=== PATIENT | male | born 1955 | race Caucasian/White ===

== ENCOUNTER 2025-01-10 18:49 | Inpatient (IN) | payer MEDICARE, SELFPAY ==
[2025-01-10] VITALS (25 sets, daily range): BP systolic 120–180; BP diastolic 64–99; PULSE 81–100; RESP 12–23; TEMP 37.1; O2SAT 94–99
--- NOTE | ~2025-01-10 | XR_ITS ---
XR chest 2V Ordering provider: Lalito Egan MD History: 69 years Male with . chest pain . Comparison: None. FINDINGS: MEDIASTINUM: The cardiac silhouette is not enlarged. LUNGS: No infiltrates, effusions or pneumothorax. Minimal underlying fibrotic changes in lung bases. OTHER: No free air under the diaphragm. Degenerative spine. IMPRESSION: No acute cardiopulmonary pathology. Reviewed, dictated and finalized at location A.
--- NOTE | 2025-01-10 18:55 | ECG_ITS ---
Test Date: 2025-01-10 19:00:55 Measurements Intervals [place] Rate: 84 P: 91 TX: 218 QRS: 61 QRSD: 170 T: 20 QT: 422 QTc: 501 Interpretive Statements SINUS RHYTHM WITH FIRST DEGREE AV BLOCK WITH OCCASIONAL SUPRAVENTRICULAR PREMATURE COMPLEXES RIGHT BUNDLE BRANCH BLOCK [120+ ms QRS DURATION, UPRIGHT V1, 40+ ms S IN I/aVL/V4/V5/V6] MARKED T-WAVE ABNORMALITY, CONSIDER ANTERIOR ISCHEMIA [-0.5+ mV T-WAVE IN V3/V4] ABNORMAL ECG No previous ECG available for comparison Electronically Signed On 01-11-2025 12:33:47 CDT by Norberto Beck M.D.
[2025-01-10 19:12] LABS: Hematocrit 46.4 % (42.0-52.0); Hemoglobin 15.6 g/dL (14.0-18.0); Immature Granulocyte Percent A 0.3 % (0-0.5); Lymphocytes Absolute Auto 0.76 K/mm3 (0.9-3.2); Mean Corpuscular HGB Conc 33.6 g/dl (32-36); Mean Corpuscular Hemoglobin 31.4 pg (26-34); Mean Corpuscular Volume 93.4 fl (80-100); Nucleated Red Blood Cells Absolute Auto 0.000 K/mm3 (0.0-0.012); Nucleated Red Blood Cells Perc 0.0 % (0.0-0.2); Platelet Count Result 179 k/mm3 (150-375); Red Blood Count 4.97 M/mm3 (4.6-6.20); White Blood Count 9.5 K/mm3 (4.5-10.0)
--- NOTE | 2025-01-10 19:21 | ED.CHESTPAIN ---
HPI - Chest Pain General Chief Complaint: Chest Pain Stated Complaint: CHEST TIGHTNESS, Hx OF HEART STENTS Time Seen by Provider: 01/10/25 19:10 History of Present Illness HPI narrative: Patient presents with report of substernal chest tightness that started 1-1/2 hours prior to EMS arrival. He describes it as a heartburn sensation for which he took for Rolaids without relief. It is otherwise nonradiating. He also took 2 nitroglycerin tablets at home although he had been prescribed these a very long time ago and they were noted to be . He noted no change after he took these. He does have a history of 2 stents placed approximately 10 years ago at [facility] and does follow religiously with his paper sample clerk through [facility] including most recently 4 months ago. No recent cardiac catheterizations. He believes he might of had a stress test although the timing of which is unclear. He does receive quarterly blood work given he is on leflunomide and this was done recently in his blood glucose was 109. Denies a history of heart failure but is on spironolactone as well.. Describes the tightness currently as 3/10 in severity. No nausea or vomiting, diaphoresis, fevers or chills, or cough. He is on Eliquis and denies missing any doses. Denies any lower extremity edema. He denies any thomas shortness of breath although he does state that he is very aware when he takes a breath. Cardiac risk factors HTN: Yes HLD: No but on statin as preventative/post stent med due to CAD DM: No Obese: Yes Smoker: No, quit 20 years ago Personal history IL/TIA/CVA: Hx CAD w/ stent Fam Hx IL in first degree relative <65yo: No Related Data Home Medications ?Medication ?Instructions ?Recorded ?Confirmed ?Last Taken ?Type amlodipine 10 mg tablet 10 mg PO DAILY@0400 01/11/25 01/11/25 01/10/25 04:03 History 10 mg apixaban 5 mg tablet (Eliquis) 5 mg PO BID 01/11/25 01/11/25 01/10/25 16:00 History 5 mg atorvastatin 40 mg tablet 40 mg PO .daily 1600 01/11/25 01/11/25 01/10/25 16:00 History 40 mg bupropion HCl 150 mg 24 hr tablet, 450 mg PO .daily 0400 01/11/25 07/02/25 07/01/25 04:00 History extended release 450 mg clonidine HCl 0.3 mg tablet 0.3 mg PO Q8H 01/11/25 01/11/25 01/10/25 20:00 History 0.3 mg hydralazine 100 mg tablet 100 mg PO .daily 0400 01/11/25 01/11/25 01/10/25 04:00 History 100 mg hydralazine 25 mg tablet 75 mg PO Q8H 01/11/25 01/11/25 01/10/25 20:00 History 75 mg leflunomide 10 mg tablet 10 mg PO .daily 1600 01/11/25 01/11/25 01/10/25 16:00 History 10 mg metformin 500 mg tablet,extended 500 mg PO .daily 04001/11/25 01/11/25 01/10/25 04:00 History release 24 hr 500 mg metoprolol succinate 50 mg 50 mg PO Q12H 01/11/25 01/11/25 01/10/25 16:00 History tablet,extended release 24 hr 50 mg spironolactone 50 mg tablet 50 mg PO .daily noon 01/11/25 01/11/25 01/10/25 12:00 History 50 mg tirzepatide (weight loss) 5 mg/0.5 5 mg subcut WEEKLY 01/11/25 01/11/25 01/07/25 16:00 History mL subcutaneous pen injector 5 mg (Zepbound) Allergies Allergy/AdvReac Type Severity Reaction Status Date / Time lisinopril Allergy Intermediate angioedema Verified 01/10/25 19:10 [facility] Past Medical History Medical History (Updated 01/11/25 @ 00:32 by JAMES Vaughn) Coronary artery disease Atrial fibrillation Former smoker, stopped smoking many years ago Obese On statin therapy due to risk of future cardiovascular event HTN (hypertension) On custodial leflunomide therapy Surgical History Surgical History History of coronary artery stent placement x2, [facility]; approx 2014 Social History Social History Smoking status: Former smoker Tobacco type: cigarettes Smoking end date: 01/12/20 Alcohol intake: current Drinks per week: 6 Substance use: current Substance use type: marijuana Do You Feel Safe in your Home?: Yes Lack of Transportation: No Lack of Food: Never True Current Housing: I Have Housing Concerned About Future Housing: No Difficulty Paying Gas/Electric Bills: No Difficulty Paying for Meds: No Currently Unemployed: No Education: Master's Degree or Higher Difficulty w/ Childcare or Family Care: No Spiritual care concerns: No Exam Narrative: GENERAL: Well-appearing, well-nourished, and in no acute distress. HEAD: Normocephalic, atraumatic. EYES: Non injected, non icteric ENT: Nares clear, no rhinorrhea or epistaxis. Gross auditory acuity intact. NECK: Supple. No meningismus. CHEST: Speaking in full sentences. No respiratory distress. HEART: Regular rate and rhythm. . ABDOMEN: Obese but Soft, nondistended. EXTREMITIES: Normal range of motion. 1+ bilateral lower extremity edema. SKIN: Warm, dry, no rash. NEURO: No focal deficits. Alert and oriented. Answering questions. Following commands. Normal speech without aphasia or dysarthria. PSYCH: Normal mood and affect. Course Vital Signs Vital signs: Vital Signs Temperature 98.8 F 01/10/25 19:08 Pulse Rate 81 01/10/25 19:08 Respiratory Rate 13 01/10/25 19:08 Blood Pressure 140/76 01/10/25 19:08 Pulse Oximetry 97 01/10/25 19:08 Oxygen Delivery Room Air 01/10/25 19:08 Temperature 98.2 F 01/12/25 11:58 Pulse Rate 60 01/12/25 14:00 Respiratory Rate 16 01/12/25 11:58 Blood Pressure 169/87 H 01/12/25 11:58 Pulse Oximetry 96 01/12/25 11:58 Oxygen Delivery Room Air 01/12/25 12:00 Fraction of Inspired Oxygen 21 01/11/25 19:36 MDM - Chest Pain MDM Narrative Medical decision making narrative: Exceedingly pleasant 69-year-old male with past medical history of CAD status post 2 stents presents with report of chest tightness beginning 1-1/2 hours prior to EMS arrival. He trialed for related tablets given it felt like heartburn. He also tried 2 nitroglycerin sublingual tablets but did note that they were significantly and he had never tried this medication before. He experienced no relief. In the emergency department they are afebrile with vital signs within normal limits. HEART SCORE History 2 highly suspicious 1 moderately suspicious 0 slightly suspicious History score [address] depression/elevation not due to LBBB, LVH, or digoxin [address] depression but LBBB, LVH, nonspecific repolarization changes 0 normal ECG score 1 Age 2 >/= 65 1 45-64 0 <45 Age score 2 Risk factors (HTN, hypercholesterolemia, DM, obesity with BMI >30, current smoker or cessation </=3mo), positive fam hx with parent or sibling with CVD before age 65, atherosclerotic disease (prior IL, PCI/CABG, CVA/TIA, or peripheral arterial disease) 2 >/= 3 risk factors or history of atherosclerotic dz 1 - 1-2 risk factors 0 no known risk factors Risk factor score 2 Initial Troponin 2 >3 times normal limit 1 1-3 times normal limit 0 less than or equal to normal limit Troponin score 0 Total HEART Score 5 Albuterol treatment given he had some wheezes on exam. D-dimer normal. Patient reassessed at 10:00 p.m. he states his symptoms are better although he does have a headache after receiving nitro. He thinks the cumulative effect of the nitro helped his initial symptoms; the headache is a likely side effect of medication. Patient's repeat EKG appears the same as his initial 1 did. Pre populated algorithm suggests acute IL however is the QRS complex isolated to lead 3 but that is flagging this. He is currently asymptomtic, no chest pain. Out of an abundance of precaution I did discuss with the distribution center supervisor who reviewed both EKGs and concurs. No STEMI activation. Repeat troponin normal. Spoke with [facility] at 23:26 who accepted admission. IMU bed. Differential Diagnosis Differential diagnosis: Likely pneumothorax, stable angina, unstable angina pectoris, atypical chest pain, st elevation myocardial infarction, costochondritis, chest pain, biliary colic and other (Heart failure, pulmonary embolism (though less likely given on Elliquis)) Lab Data Attestation: I reviewed the patient's lab results. Lab results narrative: CBC generally unremarkable except for mild abnormalities on the differential 01/12/25 03:39 01/12/25 03:39 Labs: Lab Results 01/10/25 01/10/25 01/10/25 Range/Units 19:07 20:14 22:21 WBC 9.5 (4.5-10.0) K/mm3 RBC 4.97 (4.6-6.20) M/mm3 Hgb 15.6 (14.0-18.0) g/dL Hct 46.4 (42.0-52.0) % MCV 93.4 (80-100) fl MCH 31.4 (26-34) pg MCHC 33.6 (32-36) g/dl RDW 12.5 (11.5-14.5) % Plt Count 179 (150-375) k/mm3 MPV 10.3 (7.4-10.4) fl Immature Gran % (Auto) 0.3 (0-0.5) % Neut % (Auto) 81.4 H (45.5-73.1) % Lymph % (Auto) 8.0 L (18.3-44.2) % [place] % (Auto) 7.8 (2.6-8.5) % Eos % (Auto) 2.0 (0-4.4) % Baso % (Auto) 0.5 (0.2-1.2) % Lymph # (Auto) 0.76 L (0.9-3.2) K/mm3 Child[place] # (Auto) 0.7 H (0.1-0.6) K/mm3 Eos # (Auto) 0.2 (0-0.3) K/mm3 Baso # (Auto) 0.1 (0.0-0.1) K/mm3 Abs Immat Gran (auto) 0.03 (0.00-0.031) K/mm3 Absolute Neuts (auto) 7.7 H (1.3-6.7) K/mm3 Absolute Nucleated RBC 0.000 (0.0-0.012) K/mm3 Nucleated RBC % 0.0 (0.0-0.2) % PT 14.3 (11.1-14.7) Seconds INR 1.1 APTT 38.6 H (22.3-36.8) Seconds D-Dimer 0.36 (<0.48) ug/mL Sodium 133 L (137-145) mmol/L Potassium 3.4 (3.4-5.0) mmol/L Chloride 95 L (98-107) mmol/L Carbon Dioxide 24 (22-30) mmol/L Anion Gap 14 H (4-12) mmol/L BUN 18 (9-20) mg/dL Creatinine 0.95 (0.7-1.3) mg/dL Estim Creat Clear Calc 88 ml/min Estimated GFR > 60 (59 - ) Glucose 97 (65-110) mg/dL Calcium 9.8 (8.4-10.2) mg/dL Magnesium 1.9 (1.6-2.3) mg/dL Total Bilirubin 0.8 (0.2-1.3) mg/dL AST 39 (17-59) U/L ALT 28 (6-50) U/L Alkaline Phosphatase 66 (38-126) U/L Troponin I < 0.012 < 0.012 (0.000-0.034) ng/mL NT-Pro-B Natriuret Pep 30 (19.9-100) pg/mL Total Protein 8.1 (6.3-8.2) g/dL Albumin 4.6 (3.5-5.1) g/dL Lipase 83 (23-300) U/L Influenza A (RT-PCR) Negative (Negative) Influenza B (RT-PCR) Negative (Negative) RSV (RT-PCR) Negative (Negative) SARS-CoV-2 RNA (RT-PCR) Negative (Negative) 01/11/25 Range/Units 01:14 WBC (4.5-10.0) K/mm3 RBC (4.6-6.20) M/mm3 Hgb (14.0-18.0) g/dL Hct (42.0-52.0) % MCV (80-100) fl MCH (26-34) pg MCHC (32-36) g/dl RDW (11.5-14.5) % Plt Count (150-375) k/mm3 MPV (7.4-10.4) fl Immature Gran % (Auto) (0-0.5) % Neut % (Auto) (45.5-73.1) % Lymph % (Auto) (18.3-44.2) % Child[place] % (Auto) (2.6-8.5) % Eos % (Auto) (0-4.4) % Baso % (Auto) (0.2-1.2) % Lymph # (Auto) (0.9-3.2) K/mm3 [place] # (Auto) (0.1-0.6) K/mm3 Eos # (Auto) (0-0.3) K/mm3 Baso # (Auto) (0.0-0.1) K/mm3 Abs Immat Gran (auto) (0.00-0.031) K/mm3 Absolute Neuts (auto) (1.3-6.7) K/mm3 Absolute Nucleated RBC (0.0-0.012) K/mm3 Nucleated RBC % (0.0-0.2) % PT (11.1-14.7) Seconds INR APTT (22.3-36.8) Seconds D-Dimer (<0.48) ug/mL Sodium (137-145) mmol/L Potassium (3.4-5.0) mmol/L Chloride (98-107) mmol/L Carbon Dioxide (22-30) mmol/L Anion Gap (4-12) mmol/L BUN (9-20) mg/dL Creatinine (0.7-1.3) mg/dL Estim Creat Clear Calc ml/min Estimated GFR (59 - ) Glucose (65-110) mg/dL Calcium (8.4-10.2) mg/dL Magnesium (1.6-2.3) mg/dL Total Bilirubin (0.2-1.3) mg/dL AST (17-59) U/L ALT (6-50) U/L Alkaline Phosphatase (38-126) U/L Troponin I < 0.012 (0.000-0.034) ng/mL NT-Pro-B Natriuret Pep (19.9-100) pg/mL Total Protein (6.3-8.2) g/dL Albumin (3.5-5.1) g/dL Lipase (23-300) U/L Influenza A (RT-PCR) (Negative) Influenza B (RT-PCR) (Negative) RSV (RT-PCR) (Negative) SARS-CoV-2 RNA (RT-PCR) (Negative) Imaging Data Radiologist's impression: IMPRESSION: No acute cardiopulmonary pathology. ECG Data EKG #1: Attestation: I personally reviewed and interpreted this ECG as follows: ECG completion date: 01/10/25 ECG completion time: 19:00 Prior ECG tracings: not available for review (No prior for comparison) Interpretation: Normal sinus rhythm at a rate of 84 beats per minute. No prolonged at 218 milliseconds consistent with a first-degree AV block. There is occasional premature complex. QRS 170. QT/QTC 422/463. RBBB given QRS greater [id number]; RSR' M-shaped pattern in V1-V3; wide, slurred S wave in lateral leads (I, aVL, V5-6). Patient has T-wave inversions in 3. T-wave inversions in V3 and V4 and what appeared to be ST depression in V5 and V6. EKG #2: Attestation: I personally reviewed and interpreted this ECG as follows: ECG completion date: 01/10/25 ECG completion time: 22:36 Interpretation: Normal sinus rhythm at a rate of 91 beats per minute. MI interval prolonged at 206 millisecond. QRS 164. QT/QTC 397/446. Patient continues to have T-wave inversions in 3 and AVF. He also has T-wave inversions in V3, possibly due to lead placement. The ST depressions in V5 and V6 are still appreciated. There is questionable appearance of QRS complex in III, an isolated finding. See above in MDM. Discharge Plan Discharge Clinical Impression: Chest pain Patient Disposition: Still a Patient Condition: Stable Time of Disposition: 23:27
[2025-01-10 19:23] LABS: Alanine Aminotransferase 28 U/L (6-50); Albumin Level 4.6 g/dL (3.5-5.1); Alkaline Phosphatase 66 U/L (38-126); Anion Gap 14 mmol/L (4-12); Aspartate Amino Transferase 39 U/L (17-59); Bilirubin,Total 0.8 mg/dL (0.2-1.3); Blood Urea Nitrogen 18 mg/dL (9-20); Calcium 9.8 mg/dL (8.4-10.2); Carbon Dioxide 24 mmol/L (22-30); Chloride 95 mmol/L (98-107); Estimated CRCL calculation 88 ml/min; Estimated Glomerular Filt Rate > 60; Glucose 97 mg/dL (65-110); Lipase 83 U/L (23-300); Potassium 3.4 mmol/L (3.4-5.0); Sodium 133 mmol/L (137-145); Total Protein 8.1 g/dL (6.3-8.2)
[2025-01-10 19:24] LABS: INR 1.1; Prothrombin Time 14.3 Seconds (11.1-14.7)
[2025-01-10 19:25] LABS: Partial Thromboplastin Time 38.6 Seconds (22.3-36.8)
[2025-01-10 19:35] LABS: Troponin I < 0.012 ng/mL (0.000-0.034)
[2025-01-10] MEDS: NITROGLYCERIN SL 0.4 MG TABLET SUBLINGUAL (19:52)
--- OUTSIDE RECORDS SUMMARY | 2025-01-10 20:13 | XMS_ITS | Referral Summary ---
Author Organization [facility] Address [address] [place] [address] Care Team Providers Care Billet Examiner Name Role Phone Abner Beck MD Unavailable [phone] Liana Salas MD Unavailable No, Physician Primary Care Provider Encounters Date Type Department Care Team Description 01/06/2025 Orders Only [facility] [address] [facility] [address] [place] [phone] Liana Salas MD 01/06/2025 Orders Only [facility] [address] [facility] 5th [place] [address] [place] [phone] Liana Salas MD Psoriatic arthritis (HCC) (Primary Dx); Encounter for long-term (current) use of high-risk medication 11/09/2024 10:00 AM CDT Office Visit [facility] [address] [facility] 5th [place] [address] [place] [phone] Liana Salas MD Psoriatic arthritis (HCC) (Primary Dx); Encounter for long-term (current) use of high-risk medication; Primary osteoarthritis involving multiple joints; Iliotibial band syndrome, unspecified laterality from Last 3 Months Allergies Active Allergy Reactions Criticality Noted Date Comments Lisinopril Swelling Medium 01/05/2013 Medications aspirin 81 mg tablet Take 1 tablet (81 mg total) by mouth daily Active LORazepam (ATIVAN) 0.5 mg tablet Take 1 tablet (0.5 mg total) by mouth as needed for anxiety 30 tablet 05/17/20 24 Active apixaban (Eliquis) 5 mg tabletIndicatio ns:Atrial fibrillation with RVR (HCC) Take 1 tablet (5 mg total) by mouth 2 (two) times a day 180 tablet 2 09/26/19 25 Active cloNIDine (CATAPRES) 0.3 mg tablet Take 1 tablet (0.3 mg total) by mouth 3 (three) times a day 270 tablet 2 09/27/19 25 Active metoprolol XL (TOPROL-XL) 50 mg extended release tablet Take 1 tablet (50 mg total) by mouth daily 90 tablet 2 09/27/19 25 Active spironolactone (ALDACTONE) 50 mg tablet Take 1 tablet (50 mg total) by mouth daily 90 tablet 2 09/27/19 25 Active amLODIPine (NORVASC) 10 mg tablet Take 1 tablet (10 mg total) by mouth daily 90 tablet 2 09/27/19 25 Active atorvastatin (LIPITOR) 40 mg tablet Take 1 tablet (40 mg total) by mouth daily 90 tablet 2 09/27/19 25 Active metFORMIN XR (GLUCOPHAGE XR) 500 mg 24 hr tabletIndicatio ns:Polyuria,Alt ered glucose metabolism Take 1 tablet (500 mg total) by mouth daily with breakfast 90 tablet 2 09/26/19 25 Active buPROPion XL (WELLBUTRIN XL) 150 mg 24 hr tablet Take 3 tablets (450 mg total) by mouth every morning 270 tablet 1 09/28/19 25 Active hydroCHLOROthia zide (HYDRODIURIL) 50 mg tablet Take 1 tablet (50 mg total) by mouth daily 90 tablet 3 10/05/19 25 2025 Active hydrALAZINE (APRESOLINE) 100 mg tabletIndicatio ns:hypertension Take 1 tablet (100 mg total) by mouth daily 90 tablet 3 10/05/19 25 2025 Active sildenafiL (VIAGRA) 100 mg tablet Take 1 tablet (100 mg total) by mouth as needed for erectile dysfunction 90 tablet 3 10/12/19 25 Active hydrALAZINE (APRESOLINE) 25 mg tablet Take 3 tablets (75 mg total) by mouth 2 (two) times a day 180 tablet 11 10/22/19 25 2025 Active leflunomide (ARAVA) 10 mg tabletIndicatio ns:Psoriatic arthritis (HCC) TAKE 1 TABLET DAILY 90 tablet 01/06/20 25 Active tirzepatide, weight loss, (Zepbound) 7.5 mg/0.5 mL pen injector Inject 0.5 mL (7.5 mg total) under the skin once a week 2 mL 01/10/20 25 Active leflunomide (ARAVA) 10 mg tabletIndicatio ns:Psoriatic arthritis (HCC) Take 1 tablet (10 mg total) by mouth daily 90 tablet 09/29/19 25 2024 Discontinued tirzepatide, weight loss, (Zepbound) 5 mg/0.5 mL pen injector Inject 0.5 mL (5 mg total) under the skin every 7 days 2 mL 11/11/19 25 2024 Discontinued(R eorder) tirzepatide, weight loss, (Zepbound) 5 mg/0.5 mL pen injector Inject 0.5 mL (5 mg total) under the skin every 7 days 2 mL 12/14/19 25 2024 Discontinued Active Problems Problem Noted Date Diagnosed Date History of IL (myocardial infarction) 06/17/2024 Atrial fibrillation with RVR 09/17/2023 Overview (09/17/2023): Images from the original note were not included. Assessment & Plan (03/30/2024 4:45 PM CDT): No obvious symptoms symptoms , stable on meds plans for Cardiology follow-up. Assessment & Plan (09/17/2023 10:20 AM GUM SCORING MACHINE OPERATOR): Newly noted afib rvr w/ exam, EKG confirmed- detailed above Remains asymptomatic, heart rate modestly stable in 120s Exam benign otherwise w/ decom sx, etiology to explain Will update CMP, TFT to rule out possible etiologies Arrange for routine TTE, possible event monitor (?), discuss anti arrhythmics [facility] - will update today to f/u w/ pt sooner for resting if warranted + apixaban 5 mg b.i.d. for VTE prophylaxis; benefits>risks, S/Es & use of therapy discussed w/ Pt; close monitoring with borderline thrombocytopenia historically Discussed possibility of + dilt or alt beta ba from toprol- comfortable deferring given asymp status & mod stable HR 120s Counseled of reportable symptoms warranting rate control, red flags warranting ED & avoidable triggers to maintain steady heart rate Update in the week or interim prn Class 2 severe obesity due t o excess calories with serious comorbidity and body mass index (BMI) of 37.0 to 37.9 in adult 03/12/2022 Assessment & Plan (03/30/2024 4:45 PM CDT): Working on diet and exercise. Given prediabetes hypertension cardiac issues he is candidate for GLP 1 medications. He will attempt to get this filled Assessment & Plan (03/12/2022 8:55 AM CDT): He is working on calorie restriction and exercise. Adenomatous polyps 01/15/2022 Overview (01/15/2022): Added automatically from request for surgery [id number] Paresthesia 02/08/2021 Assessment & Plan (02/08/2021 10:10 AM CDT): Likely mild neuropathy will check labs. No other new complaints. Hallux rigidus of both feet 12/02/2020 Altered glucose metabolism 02/03/2019 Assessment & Plan (03/30/2024 8:02 AM CDT): Checking A1c now. Assessment & Plan (09/17/2023 8:30 AM GUM SCORING MACHINE OPERATOR): Impaired Fasting Glucose is modestly stable A1c of 5.8% today compared to 5.7% 6 months prior though still well under goal range Counseled on regular aerobic exercise, including walkig, jogging, targeting 10K- 20K step equivalent daily. and Counseled on low carbohydrate diet Follow up at the next regular appointment Assessment & Plan (03/18/2023 8:16 AM CDT): Blood sugars remain in good range. NO progression towards diabetes. Previous symptoms of sweats and hyperglycemic type symptoms resolved. Assessment & Plan (11/07/2022 9:31 AM CDT): Impaired Fasting Glucose is improving w/ therapy, lifestyle FBG glucose reduced to 130s-140s from 150-160s prior A1c up to 5.8% from 5.6% Counseled on regular aerobic exercise, including walkig, jogging, targeting 10K- 20K step equivalent daily. and Counseled on low carbohydrate diet Cnt metformin 500mg every day to avoid risk of hypoglycemia 10/02 UA unrevealing for glycosuria RTC 5 months as scheduled, interim w/ FBG Assessment & Plan (10/02/2022 11:00 AM CDT): Impaired Fasting Glucose is marginally worse, suspectedly symptomatic FBG glucose higher 150-160s from 120s A1c up to 5.8% from 5.6% Counseled on regular aerobic exercise, including walkig, jogging, targeting 10K- 20K step equivalent daily. and Counseled on low carbohydrate diet While beneficial to PMHx, SGLT1 farxiga not likely covered Agreeable trial metformin 500mg every day for preDM, prevention progression and steady glucose levels Counseled of S/Es, dietary modifications Pending CMP, UA w/ reflex for glycosuria Follow up in 4 weeks Assessment & Plan (03/12/2022 8:55 AM CDT): Checking hba1c. No recent symptoms related. Assessment & Plan (02/08/2021 9:51 AM CDT): Checking hba1c. No new complications. Working on weight loss Assessment & Plan (02/09/2020 9:47 AM CDT): Checking hba1c current regimen Medicare annual wellness visit, subsequent 01/07 Assessment & Plan (03/30/2024 8:01 AM CDT): Checking labs per routine and pertaining to problems listed . HM items reviewed and updated . No new concerns. Immunizations are utd Assessment & Plan (03/18/2023 8:17 AM CDT): Checking labs per routine and pertaining to problems listed . HM items reviewed and updated . No new concerns. He is considering covid update in the fall. Flu shot now. Labs fine. Assessment & Plan (03/12/2022 8:51 AM CDT): Checking labs per routine and pertaining to problems listed . HM items reviewed and updated . No new concerns. Getting pneumovax now. Checking labs as per routine. Otherwise utd with these Assessment & Plan (02/08/2021 9:52 AM CDT): Checking labs per routine and pertaining to problems listed . HM items reviewed and updated . No new concerns. Assessment & Plan (02/09/2020 9:46 AM CDT): Checking labs per routine and pertaining to problems listed . HM items reviewed and updated . No new concerns. Assessment & Plan (02/03/2019 9:41 AM CDT): Checking labs per routine and pertaining to problems listed . HM items reviewed and updated . No new concerns. CAD (coronary artery disease) 10/20/2017 Overview (01/07/2018): Two stents in lad 09/2017 Assessment & Plan (09/17/2023 8:34 AM GUM SCORING MACHINE OPERATOR): No reported angina or decompensation concerns amongst newly noted arrhythmia Cnt secondary preventatives for maintenance Update lipids prior to upcoming card appt Followed by Cardiology Dr. Beck Assessment & Plan (03/18/2023 8:22 AM CDT): No obvious symptoms and following twice yearly with cardiology Assessment & Plan (03/12/2022 8:51 AM CDT): No recent cardiac symptoms. No complications Continue current secondary prevention Assessment & Plan (02/08/2021 9:53 AM CDT): No new cardiac symptoms. NO chest pain or other new cardiac complaints. Continue to follow with cardiology Assessment & Plan (02/09/2020 9:47 AM CDT): No new chest pain , palpitations, sob or other complaints. Hypertension 09/01/2017 Assessment & Plan (06/17/2024 8:11 AM GUM SCORING MACHINE OPERATOR): 1. Chronic, well controlled 2. Will continue amlodipine, clonidine, hydralazine, hydrochlorothiazide, and spironolactone Assessment & Plan (03/30/2024 8:02 AM CDT): Well controlled on current regimen. Assessment & Plan (09/17/2023 8:36 AM GUM SCORING MACHINE OPERATOR): Above baseline today though Hx of white coat HTN & remains normotensive, asymptomatic at home Cnt current antihypertensive regimen, increasing exercise as tolerated the will maintain closer BP monitoring given newly noted arrhythmia to update with any trending BP's RTC 6 mos Assessment & Plan (06/09/2023 1:05 PM GUM SCORING MACHINE OPERATOR): 1. Chronic, elevated in clinic but well controlled per home readings 2. Discussed how continued use of his CPAP will help his blood pressure 3. He will continue amlodipine, clonidine, hydralazine, hydrochlorothiazide, metoprolol, and spironolactone Assessment & Plan (03/18/2023 8:21 AM CDT): Blood pressure elevation here again . Encouraged home readings He has no symptoms and will continue current regimen for now. Assessment & Plan (11/07/2022 9:27 AM CDT): Borderline controlled w/ ambulatory readings Asymptomatic Optimized on most antihypertensives Comfortable continuing Ambulatory BP, discussing BP goal at or <135/85, and reportable BPs Discussed increase hydralazine is warranted Followed by cardiology Dr.Jain rollins CAD RTC as scheduled; update interim w/ BP concerns Assessment & Plan (10/02/2022 10:58 AM CDT): Borderline controlled w/ ambulatory readings, normotensive in clinic Not likely etiology of presenting sx Cnt current antihypertensives for secondary prevention, lifestyle changes as prior Followed by cardiology hx CAD Assessment & Plan (03/14/2022 8:00 AM CDT): - Chronic, Blood pressure is slightly elevated but stable - Discussed how routine use of a CPAP machine can help control BP - Continue current medications Assessment & Plan (03/12/2022 9:03 AM CDT): Blood pressure is well controlled on current regimen . No complications. Labs have been fine. Assessment & Plan (02/08/2021 9:53 AM CDT): Hypertension is improving with treatment. Associated signs and symptoms: none. Medication Side effects, no medication side effects noted Weight loss. Regular aerobic exercise. Patient Education: Reviewed risks of hypertension and principles of treatment. Blood pressure will be reassessed at the next regular appointment. Assessment & Plan (02/09/2020 9:51 AM CDT): bp is well controlled on current regimen Assessment & Plan (02/03/2019 9:43 AM CDT): Continue with current regimen . No complications. Hyperlipidemia 07/20/2014 Assessment & Plan (03/30/2024 8:03 AM CDT): NO obvious sx or side effects from the elevation in cholesterol. Taking meds without obvious side effects . No muscle aches nor weakness. Assessment & Plan (09/17/2023 8:29 AM GUM SCORING MACHINE OPERATOR): NO obvious sx or side effects from the elevation in cholesterol. Taking meds without obvious side effects . No muscle aches nor weakness. Assessment & Plan (03/18/2023 8:21 AM CDT): NO obvious sx or side effects from the elevation in cholesterol. Taking meds without obvious side effects . No muscle aches nor weakness. Assessment & Plan (03/12/2022 8:55 AM CDT): Stable on lipitor NO obvious sx or side effects from the elevation in cholesterol. Taking his meds well without side effects . No muscle aches nor weakness. Assessment & Plan (02/08/2021 9:53 AM CDT): Stable on lipitor. Labs fie Assessment & Plan (02/09/2020 9:49 AM CDT): Continue with current regimen No concerns. Assessment & Plan (02/03/2019 9:41 AM CDT): Stable on current meds. Continue for now Moderate obstructive sleep apnea 08/04/2013 Overview (05/17/2023): - HST (05/04/23): AHI was 24.3 with O2 kaylin of 86% - DME: IV & Respiratory Care Assessment & Plan (06/17/2024 8:11 AM GUM SCORING MACHINE OPERATOR): 1. Chronic, well controlled 2. However his machine is nearing the end of life 3. Will place order to get him a new machine 4. Will continue current pressure and Assessment & Plan (03/30/2024 8:03 AM CDT): Well controlled on cpap. Assessment & Plan (09/17/2023 8:29 AM GUM SCORING MACHINE OPERATOR): Asymptomatic on current CPAP settings-Cnt as prior Followed by sleep medicine Assessment & Plan (03/18/2023 8:20 AM CDT): Well treated with cpap and getting at home sleep study . Assessment & Plan (03/14/2022 8:07 AM CDT): 1. Chronic, well controlled 2. However patient is having some leak from his mask 3. After showing him different masks, decided on the dreamwisp mask, will send to his DME company 4. Will also get attached to his machine for efficacy monitoring Assessment & Plan (03/12/2022 9:03 AM CDT): Stable on cpap mask. Getting sleep consult soon Assessment & Plan (02/08/2021 9:53 AM CDT): Continue cpap. Assessment & Plan (02/09/2020 9:51 AM CDT): Using his cpap regularly Assessment & Plan (02/03/2019 9:42 AM CDT): Using this regularly and hasn't been set for sometime Assessment & Plan (01/07/2018 1:12 PM CDT): Stable on cpap. His energy and symptoms are all normal Rheumatoid arthritis 11/09/2010 Assessment & Plan (03/30/2024 8:01 AM CDT): Symptoms are well treated with current regimen. No complications, checking labs. Assessment & Plan (03/18/2023 8:18 AM CDT): Stable on the arava with rheumatology . Doing great without recent flare up. Assessment & Plan (03/12/2022 9:04 AM CDT): Tolerating meds well. No recent flareups. Following with rheum. Assessment & Plan (02/08/2021 10:06 AM CDT): Stable on current meds. Recurrent major depression in complete remission 11/11/2007 Assessment & Plan (05/17/2024 2:22 PM GUM SCORING MACHINE OPERATOR): Remains in remission on current regimen. No changes indicated today and he agrees to continue plan. Discussed his level of stability and he would prefer to keep visits with me. We reviewed need for yearly, and he understands to reach out sooner for any recurrent symptoms/questions. Assessment & Plan (03/30/2024 8:02 AM CDT): Symptoms are well controlled on buproprion. Assessment & Plan (03/18/2023 8:18 AM CDT): Symptoms well controlled on wellbutrin. Assessment & Plan (11/11/2022 1:24 PM CDT): Jas remains stable on his current regimen of Wellbutrin and only rare Ativan. No changes indicated today. I discussed implications of end of public health emergency due to COVID19. He will need an in person visit for refills of Ativan and telehealth will likely be more restrictive. Also discussed change in clinic location. Given his stability and good insight to reach out for changes in his condition, yearly visits are sufficient, but he understands need for in person visit should he need refill of Ativan. Assessment & Plan (03/12/2022 9:04 AM CDT): Doing well on current regimen. Following with psychiatrist. Assessment & Plan (01/21/2022 3:29 PM CDT): Remains in remission on current dosing Wellbutrin. No side effects that would affect continued usage. No changes indicated today. Positive encouragement provided about vocational activity/leisure activity. Yearly visits remain appropriate given stability and his good insight to reach out for any change in condition that is concerning. Assessment & Plan (01/29/2021 4:09 PM CDT): He is doing well on current regimen with only rare use of Ativan. Discussed dosing of Wellbutrin as well and he is happy with the ways things are currently. No indication for changes today and yearly follow up remains appropriate. Encouraged healthy behaviors such as his daily walks. He will make own appt through [employer] or call office for assistance. Assessment & Plan (02/09/2020 9:46 AM CDT): Doing fine and he is enjoying senior living despite pandemic Assessment & Plan (02/03/2019 9:41 AM CDT): Doing fine on current regimen . No complications Assessment & Plan (08/10/2018 3:14 PM GUM SCORING MACHINE OPERATOR): Remains stable on current regimen. Mood and anxiety symptoms are under control so no indication for changes today. He provides informed consent to continue with regimen of 450mg Wellbutrin with very rare Ativan. Discussed transition to senior living and he has a good plan. Return in 6months, sooner, prn. Assessment & Plan (02/02/2018 3:42 PM CDT): Mood symptoms are under good control on current regimen. Discussed that his psychotropic medication should not have any cardiac or GI side effects that affect his other conditions. He sees good benefit and consents to continue current regimen. No changes are indicated. He will f/u in 6months. Assessment & Plan (01/07/2018 1:13 PM CDT): Psychological condition is unchanged. Continue current treatment regimen. Psychological condition will be reassessed at the next regular appointment. Malignant neoplasm of prostate 05/26/2007 Assessment & Plan (03/30/2024 8:02 AM CDT): Checking psa now. Assessment & Plan (09/17/2023 8:31 AM GUM SCORING MACHINE OPERATOR): Remains near undetectable with annual active surveillance Will recheck in 6 mos Assessment & Plan (03/18/2023 8:19 AM CDT): Checking psa now. NO signs of recurrence Assessment & Plan (03/12/2022 9:03 AM CDT): Checking psa. No signs of recurrence. Assessment & Plan (02/08/2021 9:54 AM CDT): Stable by psa . Assessment & Plan (02/03/2019 9:43 AM CDT): No signs of recurrence and checking psa Resolved Problems Problem Noted Date Diagnosed Date Resolved Date Arrhythmia 09/17/2023 09/17/2023 Immunizations Immunization Administration Dates Next Due Influenza, Quadrivalent, Split, Intramuscular Influenza, Quadrivalent, Spl it, Preservative Free, Intramuscular 04/02/2019,05/13/2013 Influenza, Unspecified 05/07/2020 Pfizer SARS-CoV-2 Monovalent Vaccination (12+ Yrs) PURPLE 09/15/2020,08/18/2020 Pneumococcal Polysaccharide PPV23 03/12/2022 Tdap 02/03/2019 Tetanus toxoid, adsorbed 05/08/2008 ZOSTER Recombinant 05/24/2018,02/24/2018 Social History Tobacco Use Types Packs/Day Years Used Date Smoking Tobacco: Former Cigarettes 1 30 0 11/14/1974 - 10/09/2004 Smokeless Tobacco: Never Tobacco Cessation:Counseling Given: Not Answered Alcohol Use Standard Drinks/Week Comments Yes 0 (1 standard drink = 0.6 oz pur e alcohol) AUDIT-C Answer Date Recorded Q1: How often do you have a drink containing alcohol? 4 or more times a week 03/30/2024 Q2: How many drinks containi ng alcohol do you have on a typical day when you are drinking? 1 or 2 Q3: How often do you have si x or more drinks on one occasion? Never 03/30/2024 PHQ-2 Answer Date Recorded PHQ-2 Total Score (If total score is 3 or more points, staff should administer the PHQ-9) 0 03/28/2024 Sex and Gender Information Value Date Recorded Sex Assigned at Not on file Legal Sex Male 8:49 PM GUM SCORING MACHINE OPERATOR Gender Identity Male 05/06/2019 2:56 PM CDT Sexual Orientation Straight 05/06/2019 2: 56 PM CDT Last Filed Vital Signs Vital Sign Reading Time Taken Comments Blood Pressure 167/85 11/09/2024 10:01 AM CDT Pulse 67 11/09/2024 10:01 AM CDT Temperature 36.6 C (97.8 F) 11/09/2024 10:01 AM CDT Respiratory Rate 20 03/30/2024 7:47 AM CDT Oxygen Saturation 97% 10/04/2024 9:24 AM CDT Inhaled Oxygen Concentration - - Weight 126.1 kg (278 lb) 11/09/2024 10:01 AM CDT Height 185.4 cm (6' 1) 11/09/2024 10:01 AM CDT Body Mass Index 36.68 11/09/2024 10:01 AM CDT Plan of Treatment Not on file Medical Devices Implanted Type [employer] Device Identifier Shelf Expiration Date Model / Serial / Lot Other - See Comments-2018 Implanted:08/2018 (Quantity not on file) Other - see comments Coronary Procedures Procedure Name Priority Date/Time Associated Diagnosis Comments COMPREHENSIVE METABOLIC PANEL Routine 01/06/2025 7:05 AM CDT CBC WITH AUTO DIFFERENTIAL Routine 01/06/2025 7:05 AM CDT PSA SCREEN Routine 05/26/2024 7:25 AM GUM SCORING MACHINE OPERATOR Malignant neoplasm of prostate (HCC) COLONOSCOPY 01/20/2022 8:15 AM CDT US ABDOMINAL AORTIC ANEURYSM SCREENING Schedule Routine, Read Routine (OP Routine) 03/06/2021 8:43 AM CDT Screening for AAA (aortic abdominal aneurysm) HEPATITIS C ANTIBODY Routine 01/07/2018 2:20 PM CDT Routine physical examination from Last 3 Months or Most Recently Relevant to Health Maintenance Results * (ABNORMAL) CBC with auto differential (01/06/2025 7:05 AM CDT) WBC 4.6 3.8 - 10.8 Thousand/u L [facility] RBC, POC 4.70 4.20 - 5.80 Million/uL [facility] Hgb 16.2 13.2 - 17.1 g/dL [facility] Hct 46.6 38.5 - 50.0 % [facility] MCV 99.1 80.0 - 100.0 fL [facility] MCH 34.5(H) 27.0 - 33.0 pg [facility] MCHC 34.8 32.0 - 36.0 g/dL [facility] Comment: For adults, a slight decrease in the calculated MCHC value (in the range of 30 to 32 g/dL) is most likely not clinically significant; however, it should be interpreted with caution in correlation with other red cell parameters and the patient's clinical condition. Rdw 11.9 11.0 - 15.0 % [facility] Platelets 190 140 - 400 Thousand/u L [facility] MPV 11.0 7.5 - 12.5 fL [facility] Neutrophils, abs 2,769 1,500 - 7,800 cells/uL [facility] Lymphocytes, abs 984 850 - 3,900 cells/uL [facility] Monocyte abs 547 200 - 950 cells/uL [facility] Eosinophils, abs 258 15 - 500 cells/uL [facility] Basophils, abs 41 0 - 200 cells/uL [facility] Neutrophils 60.2 % [facility] Lymphocyte pct 21.4 % [facility] Monocytes 11.9 % [facility] Eosinophils 5.6 % [facility] Basophils 0.9 % [facility] 01/06/2025 7:05 AM CDT 01/06/2025 7:06 AM CDT us Liana Salas MD LAB BLOOD ORDERABLES Final Result [facility] [id number] [place] [address] * (ABNORMAL) Comprehensive metabolic panel (01/06/2025 7:05 AM CDT) Pathologist [facility] Glucose 107(H) 65 - 99 mg/dL [facility] Comment: Fasting reference interval For someone without known diabetes, a glucose value between 100 and 125 mg/dL is consistent with prediabetes and should be confirmed with a follow-up test. BUN 17 7 - 25 mg/dL [facility] Creatinine 0.81 0.70 - 1.35 mg/dL [facility] eGFR 95 > OR = 60 mL/min/1.7 3m2 [facility] BUN/creat ratio SEE NOTE: 6 - 22 (calc) [facility] Comment: Not Reported: BUN and Creatinine are within reference range. Sodium 134(L) 135 - 146 mmol/L [facility] Potassium, pl 4.3 3.5 - 5.3 mmol/L [facility] Chloride 100 98 - 110 mmol/L [facility] [place] CO2 25 20 - 32 mmol/L [facility] Calcium 9.1 8.6 - 10.3 mg/dL [facility] Protein, sr 6.4 6.1 - 8.1 g/dL [facility] Albumin 4.0 3.6 - 5.1 g/dL [facility] GLOBULIN 2.4 1.9 - 3.7 g/dL (calc) [facility] Alb/glob ratio 1.7 1.0 - 2.5 (calc) [facility] Bilirubin, total 0.6 0.2 - 1.2 mg/dL [facility] Alk phos 74 35 - 144 U/L [facility] AST 24 10 - 35 U/L [facility] ALT (SGPT) 20 9 - 46 U/L [facility] 01/06/2025 7:05 AM CDT 01/06/2025 7:06 AM CDT Liana Salas MD LAB BLOOD ORDERABLES Final Result Performing Organization Address City/[facility] [address]/ZIP Co de Phone Number [facility] [address] [place] [address] * PSA screen (05/26/2024 7:25 AM 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 The test result will be approximately 20% lower when compared to the equimolar-standardized total PSA (Brett [place]). Comparison of serial PSA results should be interpreted with this fact in mind. This test was performed using the Siemens chemiluminescent method. Values obtained from different assay methods cannot be used interchangeably. PSA levels, regardless of value, should not be interpreted as absolute evidence of the presence or absence of disease. Blood 05/26/2024 7:25 AM GUM SCORING MACHINE OPERATOR 05/26/2024 7:25 AM GUM SCORING MACHINE OPERATOR Leonel Burnham MD LAB BLOOD ORDERABLES Final R esult [facility] [place] [address] [id number] * COLONOSCOPY (01/20/2022 8:15 AM CDT) Anatomical Region Laterality Modality Other Narrative Procedure Note Audrey Mcgrath MD - 01/20/2022 8:15 AM CDT [facility] Patient Name: Jas Ramirez Procedure Date: 01/20/2022 8:15 AM Date of : 1955 Admit Type: Outpatient Age: 66 Gender: Male Attending MD: Audrey Mcgrath M.D. Room: [facility] ENDOSCOPY ROOM 9 Note Status: Finalized Procedure: Colonoscopy Indications: Surveillance: Personal history of adenomatouspolyps on last colonoscopy 3 years ago, Last colonoscopy: October 2018 Referring MD: Leonel Burnham M.D. Providers: Audrey Mcgrath M.D. Medicines: Monitored Anesthesia Care Complications: No immediate complications. Estimated Blood Loss: Estimated blood loss: none. Procedure: Pre-Anesthesia Assessment: - Immediately prior to administration ofmedications, the patient was re-assessed for adequacy to receive sedatives. - The risks and benefits of the procedure and the sedation options and risks were discussed with the patient. All questions were answered and informed consent was obtained. The benefits, risks and alternatives of theprocedure and sedation were discussed and informed consentwas obtained. All questions were answered. Please referto the signed informed consent document in the medical record. The scope was passed under direct vision.The CF [id number] endoscope was introduced through the anus and advanced to the cecum, identified by appendiceal orifice and ileocecal valve. The colonoscopy was performed without difficulty. The patient tolerated the procedure well. The qualityof the bowel preparation was evaluated using the BBPS ([place] Bowel Preparation Scale) with scores of:Right Colon = 3 (entire mucosa seen well with no residual staining, small fragments of stool or opaqueliquid), Transverse Colon = 3 (entire mucosa seen well withno residual staining, small fragments of stool oropaque liquid) and Left Colon = 2 (minor amount ofresidual staining, small fragments of stool and/or opaque liquid, but mucosa seen well). The total BBPS score equals 8. The quality of the bowel preparation was good. The bowel preparation used was polyethylene glycol (PEG) via split dose instruction. Thequality of the bowel preparation was good. Findings: Many small-mouthed diverticula were found in the sigmoid colon. Non-bleeding internal hemorrhoids were found during retroflexion. The hemorrhoids were medium-sized. The exam was otherwise without abnormality. Impression: - Diverticulosis in the sigmoid colon. - Non-bleeding internal hemorrhoids. - The examination was otherwise normal. - No specimens collected. Recommendation: - Repeat colonoscopy in 5 years for surveillance. Attending Participation: I personally performed the entire procedure. Electronically signed by Audrey Mcgrath MD Audrey Mcgrath M.D. 01/20/2022 8:56:23 AM . Number of Addenda: 0 Note Initiated On: 01/20/2022 8:15 AM Recognized by the [place] [employer] for promoting quality in endoscopy us Audrey Mcgrath MD ENDOSCOPY PROCEDURES Final Res ult * US Abdominal Aortic Aneurysm Screening (03/06/2021 8:43 AM CDT) Anatomical Region Laterality Modality Abdomen Ultrasound 03/06/2021 8:47 AM CDT Impressions 03/06/2021 9:01 AM CDT No abdominal aortic aneurysm. Dictated by: Johanna Howell M.D. The radiology attending physician has personally reviewed this study, and had reviewed and/or edited this written report and agrees with it. Electronically signed by: Mark Woodard M.D. Narrative 03/06/2021 9:01 AM CDT EXAMINATION: AORTA SONOGRAM HISTORY: 65-year-old male undergoing abdominal aortic aneurysm screening COMPARISON: CT 01/11/2018 FINDINGS: Aorta: The proximal abdominal aorta is difficult to visualize due to body habitus. There is no abdominal aortic aneurysm. The infrarenal aorta measures 2.2 cm in its greatest AP dimension and 2.2 cm in its greatest transverse dimension. Iliac arteries: The left proximal common iliac artery measures 1.5 cm and the right 1.5 cm. Procedure Note Mark Woodard MD - 03/06/2021 EXAMINATION: AORTA SONOGRAM HISTORY: 65-year-old male undergoing abdominal aortic aneurysm screening COMPARISON: CT 01/11/2018 FINDINGS: Aorta: The proximal abdominal aorta is difficult to visualize due to body habitus. There is no abdominal aortic aneurysm. The infrarenal aorta measures 2.2 cm in its greatest AP dimension and 2.2 cm in its greatest transverse dimension. Iliac arteries: The left proximal common iliac artery measures 1.5 cm and the right 1.5 cm. IMPRESSION: No abdominal aortic aneurysm. Dictated by: Johanna Howell M.D. The radiology attending physician has personally reviewed this study, and had reviewed and/or edited this written report and agrees with it. Electronically signed by: Mark Woodard M.D. Leonel Burnham MD [facility] US PROCEDURES Final Resu lt * Hepatitis C antibody (01/07/2018 2:20 PM CDT) Hep C Ab Nonreactive Nonreactive [facility] Comment: Interpretive Data Positive and greyzone results should be confirmed by a molecular method. If positive or greyzone, a second separately collected sample should be submitted for Hepatitis C Virus RNA. Detection and Quantitation by Real-Time Reverse Software Clerk-PCR.Current Interpretive data was last revised on 2016. Blood specimen (specimen) 01/07/2018 2:20 PM CDT 01/07/2018 3:02 PM CDT Narrative [facility] - 01/08/2018 9:26 AM CDT us Leonel Burnham MD LAB MICROBIOLOGY - GENERAL O RDERABLES Edited Result - Final [facility] Department [place] [address] from Last 3 Months or Most Recently Relevant to Health Maintenance Insurance MEDIC[facility] MEDICARE [facility] MEDICARE [facility] MEDICARE [facility] Advance Directives For more information, please contact: [phone] * Full Code (Latest Code Status on File) Date Activated Date Inactivated Comments 01/20/2022 8:08 AM 01/20/2022 1:43 PM * Full Code Date Activated Date Inactivated Comments 10/27/2018 10:53 AM 10/27/2018 4:33 PM Care Teams Billet Examiner Relationship Specialty Start Date End Date No, Physician PCP - General 10/04/24 Abner Beck MD [address] [facility] [address] [place] [address] Consulting Physician Cardiology 03/04/18 Liana Salas MD [address] [facility] [address] [place] [address] Referring Physician Rheumatology 02/03/19
--- OUTSIDE RECORDS SUMMARY | 2025-01-10 20:13 | XMS_ITS | Clinical Summary ---
Author Organization [facility] Address [address] [place] [address] Care Team Providers Care Golf Cart Repairer Name Role Phone Lito Hinojosa MD Primary Care Provider [phone] Source Comments [facility],non-owned Affiliates and Associated Physician Practices is amultiple site organization consisting of ambulatory clinics and hospital sitesin [place], [place], [place] and [place]. This disclosure is being madepursuant to the Care Everywhere program and may not contain all information available regarding this patient. 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 Gender Identity Not on file Sexual Orientation Not on file Plan of Treatment Health Maintenance Due Date Last Done Comments COLOGUARD (AGES 45-75) - COL ON CA SCREENING 1955 COLON MONITORING 1955 COLONOSCOPY - COLON CA SCREENING 1955 CT COLONOGRAPHY - COLON CA SCREENING 1955 Colorectal Cancer Screening 1955 FIT - COLON CA SCREENING 1955 FLEX SIG - COLON CA SCREENING 1955 LIPID TESTING 1955 HEPATITIS C SCREENING 08/02/1973 DTAP/TDAP/TD VACCINES (1 - Tdap) 1974 PNEUMOCOCCAL VACCINE 50+ (1 of 1 - PCV) 2005 ZOSTER VACCINE (1 of 2) 2005 COVID-19 VACCINE ( - 2023-2 5 season) 2024 DEPRESSION SCREENING 07/13/2024 INFLUENZA VACCINE (Season Ended) 2025 Respiratory Syncytial Virus (RSV) Vaccine Pt: or over 60 yrs (1 - 1-dose 75+ series) 2030 HEPATITIS B VACCINE Aged Out No longe r eligible based on patient's age to complete this topic HIB VACCINE Aged Out No longer eligi ble based on patient's age to complete this topic HPV VACCINE Aged Out No longer eligi ble based on patient's age to complete this topic MENINGOCOCCAL (Group B) VACC INE SHARED DECISION-MAKING Aged Out No longer eligibl e based on patient's age to complete this topic MENINGOCOCCAL GROUPS A/C/Y/W VACCINE Aged Out No longer eligible b ased on patient's age to complete this topic Care Teams Golf Cart Repairer Relationship Specialty Start Date End Date Lito Hinojosa MD PCP - General 01/14/13
--- OUTSIDE RECORDS SUMMARY | 2025-01-10 20:13 | XMS_ITS | Continuity of Care Document ---
Author Organization [facility] Address [address] [place] [address] Phone Care Team Providers Care Cotton Picker Name Role Phone Refugio PT,MPT,ATC, Jakob Unavailable Unavai lable Procedures Procedure Date Therapeutic Activities Neuromuscular Re-Ed Therapeutic Activities Neuromuscular Re-Ed Doc neg elder mal no plan PT Evaluation Moderate Complexity Therapeutic Activities Neuromuscular Re-Ed Advance Directives Directive Yes / No Effective Date File Name No Information Encounters Encounter Description Practice Location Reason(s) For Visit Diagnoses Date Provider Providers Copied on Encounter [facility] [facility] [address] [facility] [place], [place], [id number], tel:[phone] [place] No Information 3 Refugio aGlvez , [place], [place]. [facility], [place], [place], [id number], tel:[phone] [place] No Information 3 Refugio [place], [place]. Referring Provider: Delano Villasenor [facility] [place], [address]. tel:[phone] [facility], [address], [place], [place], [id number], tel:[phone] [place] No Information 3 Refugio [place], [place]. Referring Provider: Delano Villasenor, [address] [place], [address]. tel:[phone] [facility], [address], [place], [place], [id number], [place] tel:[phone] [place] No Information 3 Refugio Galvez [place], [place], [place]. Referring Provider: Delano Villasenor, [address] [place], [address]. tel:[phone] Family History Family Member Type Diagnosis Age At Onset No Information Payers Payer name Insurance type Covered democrat ID Authoriza titosin(s) Medicare [place] [id number] [facility] [id number] [address] [id number] Social History Type Description Quantity Date Captured Comments Sex Male Smoking Status No Information Chief Complaint And Reason For Visit No Information Reason For Referral Reason For Referral No Information History Of Present Illness Encounter Date Complaint History Of Prese nt Illness No Information Functional Status Date Functional Assessmen t No Information Instructions Date Instruction Additional Infor nikki Giving encouragement to exercise Related to Overweight Giving encouragement to exercise Related to Overweight Assessments Type Assessment Date No Information Patient Care Teams Name Effective Dates (start - stop) Status Members No Information
--- OUTSIDE RECORDS SUMMARY | 2025-01-10 20:13 | XMS_ITS | Encounter Summary ---
Author Organization [facility] Address [address] [place] [phone] Phone Care Team Providers Care Case Finisher Name Role Phone Leonel Burnham MD Primary Care Provider [phone] Abner Beck MD Unavailable [phone] Liana Salas MD Unavailable [phone] No, Physician Primary Care Provider [phone] Encounter Details Date Type Department Care Team (Late st Contact Info) Description 03/12/[address] [address] [place] [address] [facility] [address] [place] [address] Social History Tobacco Use Types Packs/Day Years Used Date Smoking Tobacco: Former Cigarettes 1 30 0 11/14/1974 - 10/09/2004 Smokeless Tobacco: Never Alcohol Use Standard Drinks/Week Comments Yes 0 (1 standard drink = 0.6 oz pur e alcohol) 15/week AUDIT-C Answer Date Recorded Q1: How often do you have a drink containing alcohol? 4 or more times a week 01/20/2022 Q2: How many drinks containi ng alcohol do you have on a typical day when you are drinking? 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 Answer Date of Assessment Author 4 or more times a week 03/12/2023 1:42 PM CDT My chart, Generic Provider * Q2: How many drinks containing alcohol do you have on a typical day when you are drinking? Answer Date of Assessment Author 1 or 2 03/12/2023 1:42 PM CDT Maxwell, Generic Provider * Q3: How often do you have six or more drinks on one occasion? Answer Date of Assessment Author Never 03/12/2023 1:42 PM CDT Maxwell, Generic Provider documented as of this encounter Plan of Treatment Not on file documented as of this encounter Visit Diagnoses Not on filedocumented in this encounter Care Teams Case Finisher Relationship Specialty Start Date End Date Leonel Burnham MD PCP - General 08/27/16 09/09/24 No, Physician PCP - General 10/04/24 Abner Beck MD [address] [place] [address] Consulting Physician Cardiology 03/04/18 Liana Salas MD [address] [place] [address] Referring Physician Rheumatology 02/03/19 documented as of this encounter
--- OUTSIDE RECORDS SUMMARY | 2025-01-10 20:13 | XMS_ITS | Clinical Summary ---
Author Organization [facility] Address [address] [place] [address] Care Team Providers Care Laboratory Animal Care Veterinarian Name Role Phone Abner Beck MD Unavailable [phone] Liana Salas MD Unavailable [phone] No, Physician Primary Care Provider [phone] Allergies Active Allergy Reactions Criticality Noted Date [...] Problem Noted Date Diagnosed Date History of GA (myocardial infarction) 06/17/2024 Atrial fibrillation with RVR 09/17/2023 Overview (09/17/2023): Images from the original note were not included. Assessment & Plan (03/30/2024 4:45 PM CDT): No obvious symptoms symptoms , stable on meds plans for Cardiology follow-up. Assessment & Plan (09/17/2023 10:20 AM DIGITAL ANALYTICS MANAGER): Newly noted afib rvr w/ exam, EKG confirmed- detailed above Remains asymptomatic, heart rate modestly stable in 120s Exam benign otherwise w/ decom sx, etiology to explain Will update CMP, TFT to rule out possible etiologies Arrange for routine TTE, possible event monitor (?), discuss anti arrhythmics or conversion procedures for this at behest of pot builder - will update today to f/u w/ [...] (01/15/2022): Added automatically from request for surgery [id number] Paresthesia 02/08/2021 Assessment & Plan (02/08/2021 10:10 AM CDT): Likely mild neuropathy will check labs. No other new complaints. Hallux rigidus of both feet 12/02/2020 Altered glucose metabolism 02/03/2019 Assessment & Plan (03/30/2024 8:02 AM CDT): Checking A1c now. Assessment & Plan (09/17/2023 8:30 AM DIGITAL ANALYTICS MANAGER): Impaired Fasting Glucose is modestly stable A1c [...] 09/2017 Assessment & Plan (09/17/2023 8:34 AM DIGITAL ANALYTICS MANAGER): No reported angina or decompensation concerns amongst [...] 09/01/2017 Assessment & Plan (06/17/2024 8:11 AM DIGITAL ANALYTICS MANAGER): 1. Chronic, well controlled 2. Will continue amlodipine, clonidine, hydralazine, hydrochlorothiazide, and spironolactone Assessment & Plan (03/30/2024 8:02 AM CDT): Well controlled on current regimen. Assessment & Plan (09/17/2023 8:36 AM DIGITAL ANALYTICS MANAGER): Above baseline today though Hx of white coat HTN & remains normotensive, asymptomatic at home Cnt current antihypertensive regimen, increasing exercise as tolerated the will maintain closer BP monitoring given newly noted arrhythmia to update with any trending BP's RTC 6 mos Assessment & Plan (06/09/2023 1:05 PM DIGITAL ANALYTICS MANAGER): 1. Chronic, elevated in clinic but well [...] increase hydralazine is warranted Followed by cardiology hx CAD RTC as scheduled; update interim w/ [...] weakness. Assessment & Plan (09/17/2023 8:29 AM DIGITAL ANALYTICS MANAGER): NO obvious sx or side effects from [...] Care Assessment & Plan (06/17/2024 8:11 AM DIGITAL ANALYTICS MANAGER): 1. Chronic, well controlled 2. However his machine is nearing the end of life 3. Will place order to get him a new machine 4. Will continue current pressure and Assessment & Plan (03/30/2024 8:03 AM CDT): Well controlled on cpap. Assessment & Plan (09/17/2023 8:29 AM DIGITAL ANALYTICS MANAGER): Asymptomatic on current CPAP settings-Cnt as prior Followed by sleep medicine Assessment & Plan (03/18/2023 8:20 AM CDT): Well treated with cpap and getting at home sleep study . Assessment & Plan (03/14/2022 8:07 AM CDT): 1. Chronic, well controlled 2. However patient is having some leak from his mask 3. After showing him different masks, decided on the 9Lenses mask, will send to his [employer] company 4. Will also get attached to [...] 11/11/2007 Assessment & Plan (05/17/2024 2:22 PM DIGITAL ANALYTICS MANAGER): Remains in remission on current regimen. No [...] walks. He will make own appt through [facility] or call office for assistance. Assessment & Plan (02/09/2020 9:46 AM CDT): Doing fine and he is enjoying fci despite pandemic Assessment & Plan (02/03/2019 9:41 AM CDT): Doing fine on current regimen . No complications Assessment & Plan (08/10/2018 3:14 PM DIGITAL ANALYTICS MANAGER): Remains stable on current regimen. Mood and anxiety symptoms are under control so no indication for changes today. He provides informed consent to continue with regimen of 450mg Wellbutrin with very rare Ativan. Discussed transition to [facility] and he has a good plan. Return [...] now. Assessment & Plan (09/17/2023 8:31 AM DIGITAL ANALYTICS MANAGER): Remains near undetectable with annual active surveillance [...] Diagnosed Date Resolved Date Arrhythmia 09/17/2023 09/17/2023 Encounters Date Type Department Care Team Description 01/06/[address] [facility] Rheumatology [address] [place] [address] Liana Salas MD 01/06/[address] [facility] Rheumatology [address] [place] [address] 5[address] [place] [address] [place] [address] Liana Salas MD Psoriatic arthritis (HCC) (Primary Dx); Encounter for long-term (current) use of high-risk medication 11/09/2024 10:00 AM CDT Office Visit [facility] Rheumatology [address] [place] [address] 5[address] [place] [address] [place] [address] Liana Salas MD Psoriatic arthritis (HCC) (Primary Dx); Encounter for long-term (current) use of high-risk medication; Primary osteoarthritis involving multiple joints; Iliotibial band syndrome, unspecified laterality from Last 3 Months Immunizations Immunization Administration Dates Next Due Influenza, Quadrivalent, Split, Intramuscular Influenza, Quadrivalent, Spl it, Preservative Free, Intramuscular 04/02/2019,05/13/2013 Influenza, Unspecified 05/07/2020 Pfizer SARS-CoV-2 Monovalent Vaccination (12+ Yrs) PURPLE 09/15/2020,08/18/2020 Pneumococcal Polysaccharide PPV23 03/12/2022 Tdap 02/03/2019 Tetanus toxoid, adsorbed 05/08/2008 ZOSTER Recombinant 05/24/2018,02/24/2018 Surgical History Surgery Date Site/Laterality Comments ELBOW SURGERY Left Elbow Surgery - (Added by TW Conv) WRIST SURGERY Left Wrist Surgery - (Added by TW Conv) CT PROSTECT RETROPUB RAD W/W O NRV SPAR & BI PLV LYM Prostatect Retropubic Radical W/ Bilat Pelv Lymphadenectomy - 09/2004 (Added by TW Conv) CT COLONOSCOPY FLX DX W/MARIAN J SPEC WHEN PFRMD Complete Colonoscopy - (Added by TW Conv) CARDIAC STENT PLACEMENT x2 PROSTATE SURGERY 2004 Medical History Medical History Date Comments Personal history of arthritis Ar thritis - (Added by TW Conv) Major depressive disorder, r ecurrent, moderate (HCC) Moderate recurrent major dep ression - (Added by TW Conv) Personal history of other di seases of the digestive system History of diverticulitis of colon - (Added by TW Conv) Other general symptoms and signs Exercise intolerance - (Added by TW Conv) Personal history of other di seases of the circulatory system History of hypertension - (A dded by TW Conv) Pain in shoulder Shoulder joint pain - (Added by TW Conv) Hypertension Colon polyp Small bowel obstruction (HCC) CAD (coronary artery disease) Arthritis 2009? Cancer (HCC) 2004 Heart disease 2009? Sleep apnea 2009? Family History Medical History Relation Name Comments Dementia Father Larry. Hypertension Father Larry. Dementia Mother Amber Hypertension Mother Amber Rheum arthritis Mother Amber Family histo ry of rheumatoid arthritis - (Added by TW Conv)/Family history of rheumatoid arthritis - (Added by TW Conv) Relation Name Status Comments Brother Alive Father Larry. Mother Amber Social History Tobacco Use Types Packs/Day Years [...] on file Legal Sex Male 8:49 PM DIGITAL ANALYTICS MANAGER Gender Identity Male 05/06/2019 2:56 PM CDT Sexual Orientation Straight 05/06/2019 2: 56 PM CDT Obstetrics History Last Filed Vital Signs Vital Sign Reading [...] 11/09/2024 10:01 AM CDT Plan of Treatment Health Maintenance Due Date Last Done Comments Hepatitis B Screening 1973 Influenza Vaccine (#1) 2025 , 04/20/2021, 05/07/2020, Additional history exists Covid-19 Vaccine ( season) 2025 03/04/2021, 09/15/2020, 08/18/2020 Postponed from 03/13/2024 (Patient declined, but will receive in the future) Depression Screening 03/30/2025 03/30/2024, 03/18/2023, 03/12/2022, Additional history exists Fall Risk Assessment 03/30/2025 03/30/2024, 03/18/2023, 03/12/2022, Additional history exists Well Visit 65+ 03/30/2025 03/30/2024, 12/2022, 03/12/2022, Additional history exists Prostate Cancer Screening-PSA 05/26/2026 05/26/2024, 03/18/2023, 10/02/2022, Additional history exists Colon Cancer Screening-Colonoscopy 01/20/2027 01/20/2022, 10/27/2018, 06/09/2013 DTaP/Tdap/Td Vaccine (2 - Td or Tdap) 02/03/2029 02/03/2019, 05/08/2008 Hepatitis C Screening Completed 01/07/2018 Zoster Vaccine Completed 05/24/2018, 02/24/2018 Abdominal Aortic Aneurysm (AAA) Screen Completed 03/06/2021 Colon Cancer Screening-CT Colonography Discontinued 01/20/2022, 10/27/2018, 06/09/2013 Colon Cancer Screening-DNA Stool Discontinued 01/20/2022, 10/27/2018, 06/09/2013 Colon Cancer Screening-FIT Discontinued 01/20, 10/27/2018, 06/09/2013 Colon Cancer Screening-Sigmoidoscopy Discontinued 01/20/2022, 10/27/2018, 06/09/2013 Pneumococcal vaccine 65+ Completed 03/12/2022, 01/12 Medical Devices Implanted Type Area Gym Attendant Device Identifier Shelf Expiration Date Model / Serial / Lot Other - See Comments-2018 Implanted:08/2018 (Quantity not on file) Other - see comments Coronary Procedures Procedure Name Priority Date/Time Associated Diagnosis Comments COMPREHENSIVE METABOLIC PANEL Routine 01/06/2025 7:05 AM CDT CBC WITH AUTO DIFFERENTIAL Routine 01/06/2025 7:05 AM CDT PSA SCREEN Routine 05/26/2024 7:25 AM DIGITAL ANALYTICS MANAGER Malignant neoplasm of prostate (HCC) COLONOSCOPY 01/20/2022 8:15 AM CDT ABDOMINAL AORTIC ANEURYSM SCREENING Schedule Routine, Read Routine (OP Routine) 03/06/2021 8:43 AM CDT Screening for AAA (aortic abdominal aneurysm) HEPATITIS C ANTIBODY Routine 01/07/2018 2:20 PM CDT Routine physical examination from Last 3 Months or Most Recently Relevant to Health Maintenance Results * (ABNORMAL) CBC with auto differential (01/06/2025 7:05 AM CDT) Pathologist [facility] WBC 4.6 3.8 - 10.8 Thousand/u L [...] [place] MPV 11.0 7.5 - 12.5 fL [facility] [place] Neutrophils, abs 2,769 1,500 - 7,800 cells/uL [facility] [place] Lymphocytes, abs 984 850 - 3,900 cells/uL [facility] [place] Monocyte abs 547 200 - 950 cells/uL [facility] [place] Eosinophils, abs 258 15 - 500 cells/uL [facility] [place] Basophils, abs 41 0 - 200 cells/uL [facility] [place] Neutrophils 60.2 % [facility] [place] Lymphocyte pct 21.4 % [facility] [place] Monocytes 11.9 % [facility] [place] Eosinophils 5.6 % [facility] [place] Basophils 0.9 % [facility] [place] 01/06/2025 7:05 AM CDT 01/06/2025 7:06 AM CDT us Liana Salas MD LAB BLOOD ORDERABLES Final Result [facility]US[facility] [address] [place] [address] * (ABNORMAL) Comprehensive metabolic panel (01/06/2025 7:05 AM CDT) Glucose 107(H) 65 - 99 mg/dL [facility] Comment: Fasting reference interval For someone without known diabetes, a glucose value between 100 and 125 mg/dL is consistent with prediabetes and should be confirmed with a follow-up test. BUN 17 7 - 25 mg/dL [employer] [facility] Creatinine 0.81 0.70 - 1.35 mg/dL [employer] [facility] eGFR 95 > OR = 60 mL/min/1.7 3m2 [employer] [facility] BUN/creat ratio SEE NOTE: 6 - 22 (calc) [employer] Comment: Not Reported: BUN and Creatinine are within reference range. Sodium 134(L) 135 - 146 mmol/L [employer] [facility] Potassium, pl 4.3 3.5 - 5.3 mmol/L [employer] [facility] Chloride 100 98 - 110 mmol/L [employer] [facility] CO2 25 20 - 32 mmol/L [employer] [facility] Calcium 9.1 8.6 - 10.3 mg/dL [facility] Protein, sr 6.4 6.1 - 8.1 g/dL [facility] [place] Albumin 4.0 3.6 - 5.1 g/dL [employer] [facility] [place] GLOBULIN 2.4 1.9 - 3.7 g/dL (calc) [employer] [place] Alb/glob ratio 1.7 1.0 - 2.5 (calc) [employer] [facility] Bilirubin, total 0.6 0.2 - 1.2 mg/dL [employer] [facility] Alk phos 74 35 - 144 U/L [employer] [facility] [place] AST 24 10 - 35 U/L [employer] [facility] ALT (SGPT) 20 9 - 46 U/L [employer] [facility] [place] 01/06/2025 7:05 AM CDT 01/06/2025 7:06 AM CDT us Liana Salas MD LAB BLOOD ORDERABLES Final Result Performing Organization Address City/[facility]/ZIP Co de Phone Number [facility] [address] [place] [address] * PSA screen (05/26/2024 7:25 AM DIGITAL ANALYTICS MANAGER) PSA <0.04 < OR = 4.00 ng/mL [facility] Comment: The total PSA value from this assay system is standardized against the WHO standard. The test result will be approximately 20% lower when compared to the equimolar-standardized total PSA (Brett Caspar). Comparison of serial PSA results should be interpreted with this fact in mind. This test was performed using the Siemens chemiluminescent method. Values obtained from different assay methods cannot be used interchangeably. PSA levels, regardless of value, should not be interpreted as absolute evidence of the presence or absence of disease. Blood 05/26/2024 7:25 AM DIGITAL ANALYTICS MANAGER 05/26/2024 7:25 AM DIGITAL ANALYTICS MANAGER us Leonel Burnham MD LAB BLOOD ORDERABLES Final R esult Performing Organization Address City/[facility]/ZIP Co de Phone Number [facility] [address] [place] [address] * COLONOSCOPY (01/20/2022 8:15 AM CDT) Anatomical Region Laterality Modality Other Narrative Procedure Note Early, Audrey Swann MD - 01/20/2022 8:15 AM CDT [facility] Patient Name: Jas Ramirez Procedure Date: 01/20/2022 8:15 AM Date of : 1955 Admit Type: Outpatient Age: 66 Gender: Male Attending MD: Audrey Mcgrath M.D. Room: [facility] ENDOSCOPY ROOM 9 Note Status: Finalized [...] The scope was passed under direct vision.The [id number] endoscope was introduced through the anus and advanced to the cecum, identified by appendiceal orifice and ileocecal valve. The colonoscopy was performed without difficulty. The patient tolerated the procedure well. The qualityof the bowel preparation was evaluated using the BBPS ([place] Bowel Preparation Scale) with scores of:Right Colon [...] On: 01/20/2022 8:15 AM Recognized by the [place] [employer] for promoting quality [...] by: Mark Woodard M.D. Leonel Burnham MD IMG US PROCEDURES Final Resu lt * Hepatitis C antibody (01/07/2018 2:20 PM CDT) Hep C Ab Nonreactive Nonreactive [facility] Comment: Interpretive Data Positive and greyzone results should be confirmed by a molecular method. If positive or greyzone, a second separately collected sample should be submitted for Hepatitis C Virus RNA. Detection and Quantitation by Real-Time Reverse Waterproofing Machine Operator-PCR.Current Interpretive data was last revised on 2016. Blood specimen (specimen) 01/07/2018 2:20 PM CDT 01/07/2018 3:02 PM CDT Narrative [facility] - 01/08/2018 9:26 AM CDT Leonel Burnham MD LAB MICROBIOLOGY - GENERAL O RDERABLES Edited Result - Final [facility] Department [place] [address] from Last 3 Months or Most Recently Relevant to Health Maintenance Insurance MEDICARE [facility] MEDICARE [facility] MEDICARE [facility] Address: [address] [place] [id number] [facility] [place] [address] Advance Directives For more information, please contact: [phone] * Full Code (Latest Code Status on File) Date Activated Date Inactivated Comments 01/20/2022 8:08 AM 01/20/2022 1:43 PM * Full Code Date Activated Date Inactivated Comments 10/27/2018 10:53 AM 10/27/2018 4:33 PM Care Teams Laboratory Animal Care Veterinarian Relationship Specialty Start Date End Date No, Physician PCP - General 10/04/24 Abner Beck MD [address] [place] [address] Consulting Physician Cardiology 03/04/18 Liana Salas MD [address] [place] [address] Referring Physician Rheumatology 02/03/19
[2025-01-10 20:26] LABS: Magnesium 1.9 mg/dL (1.6-2.3)
[2025-01-10 20:36] LABS: NT Pro B Type Natriuretic Pept 30 pg/mL (19.9-100)
--- NOTE | 2025-01-10 20:43 | PC.NURSE ---
pt ambulatory with steady gait to bathroom.
[2025-01-10 21:01] LABS: Influenza A QL RT-PCR Negative (Negative); Influenza B QL RT-PCR Negative (Negative); RSV RNA, RT-PCR Negative (Negative); SARS-CoV-2 RNA PCR Negative (Negative)
--- NOTE | 2025-01-10 22:07 | ECG_ITS ---
Test Date: 2025-01-10 22:36:59 Measurements Intervals [place] Rate: 91 P: -6 CO: 198 QRS: 56 QRSD: 164 T: 24 QT: 401 QTc: 495 Interpretive Statements SINUS RHYTHM WITH FIRST-DEGREE AV BLOCK RIGHT BUNDLE BRANCH BLOCK [120+ ms QRS DURATION, UPRIGHT V1, 40+ ms S IN I/aVL/V4/V5/V6] ST SEGMENT AND T-WAVE ABNORMALITY CONSIDER ANTERIOR ISCHEMIA ABNORMAL ECG Compared to ECG 01/10/2025 19:00:55 NO SIGNIFICANT CHANGE Electronically Signed On 01-11-2025 12:45:12 CDT by Norberto Beck M.D.
[2025-01-10] MEDS: ALBUTEROL SULFATE NEB 2.5 MG/3 ML INH INHALATION (22:09)
[2025-01-10 22:58] LABS: Troponin I < 0.012 ng/mL (0.000-0.034)
--- NOTE | 2025-01-10 23:28 | PC.NURSE ---
ok to take home medications per edp neema
[2025-01-11] VITALS (25 sets, daily range): BP systolic 128–149; BP diastolic 68–80; PULSE 71–147; RESP 8–20; TEMP 36.5–36.9; O2SAT 92–100; BMI 34.8
--- NOTE | 2025-01-11 00:02 | P.HP_ITS ---
H&P: HPI History of Present Illness Date/Time: 01/11/25 00:02 Chief Complaint: Chest Pain Narrative: This is a very pleasant 69-year-old male patient with past medical history of hypertension, inflammatory arthritis on leflunomide, hyperlipidemia, diabetes mellitus, coronary artery disease status post NH and stent placement x2, TIA, CVA, atrial fibrillation on chronic Eliquis who comes to the emergency room to day with a 1-1/2 hour prior to arrival onset of mid and substernal chest tightness that did not respond to antacids that he took at home nor 2 2 nitro that he took at home. He does note his nitroglycerin may have been . Patient denies any associated symptoms of nausea/vomiting/dyspnea and he denies any recent illnesses. Patient states it has been 10 years since he had 2 stents placed at [facility] and follows with insurance claims adjuster Dr. Abner Beck. Patient is a nonsmoker having quit 20 years ago and is a nonuser of drugs or alcohol. Patient does have a first-degree family history of heart disease. Prior to arrival to the emergency room he had not been able to identify anything that exacerbated or alleviated his symptoms. In the emergency room a workup was performed that showed normal and stable vital signs, unremarkable metabolic panel and CBC, normal D-dimer, normal magnesium at 1.9, normal troponin x2 and normal coagulation studies. Initial EKG performed showed normal sinus rhythm 84 beats per minute with a first-degree AV block and occasional PVCs with a right bundle-branch block along with T-wave inversions in leads 3, V3, V4 and ST depression in leads V5 and V6. We do not have any EKGs in our system for comparison as patient has not received any cardiovascular care at our facility and a 2nd EKG was performed that again showed normal sinus rhythm 91 beats per minute be with the same ST and T-wave abnormalities at this time was reading as an acute NH. ER physician consulted Dr. Grier, who did not appreciate any acute STEMI. They felt as though there was some ectopy that was causing the machine to misread the test. He did not believe patient needed immediate intervention but rather observation in the current setting of abnormal EKG and presenting with chest pain in due to having a heart score of 5 which makes patient a moderate risk to have JAILENE. Patient was administered nitropaste in our emergency room and is currently pain-free. Review of Systems Review of Systems: All systems reviewed & are unremarkable except as noted in HPI and below [facility] Past Medical History Medical History (Updated 01/11/25 @ 00:32 by JAMES Vaughn) Coronary artery disease Atrial fibrillation Former smoker, stopped smoking many years ago Obese On statin therapy due to risk of future cardiovascular event HTN (hypertension) On [facility] leflunomide therapy Surgical History Surgical History History of coronary artery stent placement x2, [facility]; approx 2014 Social History Social History Smoking status: Former smoker Smoking end date: 07/13/04 Meds Home Medications and Allergies Allergies Allergy/AdvReac Type Severity Reaction Status Date / Time lisinopril Allergy Intermediate angioedema Verified 01/10/25 19:10 Vital Signs Vital Signs - 24 hr 01/10/25 19:08 01/10/25 19:08 01/10/25 19:12 Temperature 98.8 F Pulse Rate 81 83 Respiratory Rate 13 21 H Blood Pressure 140/76 135/64 Pulse Oximetry 97 97 Oxygen Delivery Room Air 01/10/25 19:22 01/10/25 19:35 01/10/25 19:43 Temperature Pulse Rate 86 Respiratory Rate 16 Blood Pressure Pulse Oximetry 96 98 97 Oxygen Delivery Room Air 01/10/25 19:45 01/10/25 20:02 01/10/25 20:03 Temperature Pulse Rate 81 94 94 Respiratory Rate 13 16 19 Blood Pressure 120/87 Pulse Oximetry 96 95 95 Oxygen Delivery 01/10/25 20:12 01/10/25 20:41 01/10/25 20:45 Temperature Pulse Rate 91 91 90 Respiratory Rate 14 16 18 Blood Pressure 143/85 H Pulse Oximetry 96 99 98 Oxygen Delivery 01/10/25 21:37 01/10/25 21:42 01/10/25 22:02 Temperature Pulse Rate 91 96 91 Respiratory Rate 22 H 17 17 Blood Pressure 180/99 H 163/85 H Pulse Oximetry 97 97 Oxygen Delivery 01/10/25 22:03 01/10/25 22:09 01/10/25 22:15 Temperature Pulse Rate 92 92 100 Respiratory Rate 18 20 15 Blood Pressure Pulse Oximetry Oxygen Delivery 01/10/25 22:18 01/10/25 22:30 01/10/25 22:31 Temperature Pulse Rate 90 86 93 Respiratory Rate 18 14 13 Blood Pressure 127/78 Pulse Oximetry 95 94 Oxygen Delivery 01/10/25 22:54 01/10/25 23:00 01/10/25 23:02 Temperature Pulse Rate 88 90 93 Respiratory Rate 12 12 18 Blood Pressure 144/78 H Pulse Oximetry 94 95 94 Oxygen Delivery 01/10/25 23:12 01/10/25 23:15 Temperature Pulse Rate 95 93 Respiratory Rate 16 23 H Blood Pressure 149/84 H Pulse Oximetry 95 95 Oxygen Delivery Exam Const: General: comfortable and no acute distress Other: Obese male patient sitting on the side of the stretcher at this time in no acute distress HENMT: Face/Nose/Sinus: Normal nares present Mouth: Yes moist mucous membranes Eyes: General: appearance normal, both eyes and all related structures Neck: Neck: supple and no JVD Carotids: no bruits Lymphatic: lymphadenopathy not noted Chest: Other: Nontender to palpation and pain is not reproducible Resp: Effort & Inspection: normal respiratory effort Auscultation: clear to auscultation bilaterally Cardio: Rate: regular rate Rhythm: regular rhythm Heart sounds: no gallops, Murmur heart sound present and no rubs Other: Grade 2 holosystolic GI: Inspection: non-distended GI Palp: Yes Soft to palpation and No Tenderness to palpation present (GI) Auscultation: normal bowel sounds Skin: General skin exam: normal color, no rashes or lesions noted and no erythema Lesions: no lesions noted Rashes: no rashes noted Wounds: no wounds Neuro: General: gait normal Speech: normal speech Motor exam (neuro): 5/5 motor strength present throughout and Normal motor muscle tone present throughout Sensory Exam: normal sensation Extrem: General: normal to inspection, no edema and no pedal edema Other: Moves all extremities fully and equally. Psych: Mental Status: mental status grossly normal Affect: normal affect H&P: Results Labs Labs: Short CBC 01/10/25 Range/Units 19:07 WBC 9.5 (4.5-10.0) K/mm3 Hgb 15.6 (14.0-18.0) g/dL Hct 46.4 (42.0-52.0) % Plt Count 179 (150-375) k/mm3 BMP 01/10/25 19:07 Sodium 133 L Potassium 3.4 Chloride 95 L Carbon Dioxide 24 BUN 18 Creatinine 0.95 Glucose 97 Calcium 9.8 Cardiac Enzymes 01/10/25 01/10/25 Range/Units 19:07 22:21 Troponin I < 0.012 < 0.012 (0.000-0.034) ng/mL Liver Function 01/10/25 Range/Units 19:07 Total Bilirubin 0.8 (0.2-1.3) mg/dL AST 39 (17-59) U/L ALT 28 (6-50) U/L Alkaline Phosphatase 66 (38-126) U/L Albumin 4.6 (3.5-5.1) g/dL Assessment and Plan Assessment and plan (1) Chest pain: Code(s): R07.9 - Chest pain, unspecified Status: Acute Assessment and Plan: * Three troponin rule out * Monitor on telemetry * P.r.n. morphine 4 mg IV push q.4 hours for chest pain * Patient received 324 mg of aspirin in the ED * P.r.n. oxygen if needed * Nitroglycerin patch * Consult cardiology * Trend labs and vital signs (2) Coronary artery disease: Code(s): I25.10 - Atherosclerotic heart disease of [place] coronary artery without angina pectoris Status: Chronic Assessment and Plan: * As evidenced by heart score of 5, previously PCIx2, and EKG abnormalities * See plan for 1. (3) Atrial fibrillation: Code(s): I48.91 - Unspecified atrial fibrillation Status: Chronic Assessment and Plan: * Continue Eliquis dosing once ok with Cardiology. Will hold for now and provide Lovenox until it is determined what if any interventions/workup may need to be done. * Currently in sinus rhythm * Monitor on telemetry * Trend labs and vital signs (4) HTN (hypertension): Code(s): I10 - Essential (primary) hypertension Status: Chronic Assessment and Plan: * Not in acute exacerbation, well controlled * Continue home medications once they are verified and confirmed * Continue to monitor vital signs. (5) Obese: Code(s): E66.9 - Obesity, unspecified Status: Chronic Assessment and Plan: * Recommend lifestyle changes and continuation of medications to control chronic health conditions. Quality VTE Prophylaxis VTE prophylaxis: pharmacologic ordered Hospitalist MIPS Advance Care Plan I have confirmed that the patient's Advanced Care Plan is present, code status is documented, or surrogate decision maker is listed in patient medical record.: Yes Medication Reconciliation I have utilized all available resources to obtain, update and review the patients current medications (includes all prescriptions, OTC, herbals, cannabis, and nutritional supplements).: Yes
--- NOTE | 2025-01-11 01:07 | ECG_ITS ---
Test Date: 2025-01-11 07:01:08 Measurements Intervals [place] Rate: 143 P: 154 MS: 97 QRS: 44 QRSD: 174 T: -12 QT: 331 QTc: 511 Interpretive Statements S SUSPECT ATRIAL FLUTTER WITH TWO-TO-ONE CONDUCTION INDETERMINATE AXIS RIGHT BUNDLE BRANCH BLOCK [120+ ms QRS DURATION, UPRIGHT V1, 40+ ms S IN I/aVL/V4/V5/V6] ABNORMAL ECG Compared to ECG 01/10/2025 22:36:59 PATIENT IS MORE TACHYCARDIC AND LIKELY NOW IN ATRIAL FLUTTER THAN SINUS Electronically Signed On 01-11-2025 12:51:44 CDT by Norberto Beck M.D.
[2025-01-11 01:49] LABS: Troponin I < 0.012 ng/mL (0.000-0.034)
--- NOTE | 2025-01-11 02:16 | ADMGEN ---
This patient, Jas Ramirez, was admitted to IMU Room 200-01. Patient/family oriented to hospital policies and general routines including ID bracelet, bed and alarms, visiting hours, pain management, procedures, bathroom and other care routines, personal items, smoking policy, room service/diet, and visiting hours. Information on how to activate the Rapid Response Team has been discussed. Patient/Family are encouraged to report perceived risks to care and to ask questions if they do not understand what they are told or what they should do.
--- NOTE | 2025-01-11 06:57 | ECG_ITS ---
Test Date: 2025-01-11 08:36:16 Measurements Intervals [place] Rate: 131 P: 0 [place]: 0 QRS: 33 QRSD: 169 T: 1 QT: 378 QTc: 560 Interpretive Statements ATRIAL FLUTTER/TACHYCARDIA WITH RAPID VENTRICULAR RESPONSE RIGHT BUNDLE BRANCH BLOCK [120+ ms QRS DURATION, UPRIGHT V1, 40+ ms S IN I/aVL/V4/V5/V6] ABNORMAL ECG Compared to ECG 01/11/2025 07:01:08 NO SIGNIFICANT CHANGE Electronically Signed On 01-11-2025 12:52:08 CDT by Norberto Beck M.D.
--- NOTE | 2025-01-11 07:49 | P.PNIM_ITS ---
Progress Note: A&P Assessment and Plan (1) Chest pain: Code(s): R07.9 - Chest pain, unspecified Status: Acute Assessment and Plan: * Three troponin rule out * Monitor on telemetry * P.r.n. morphine 4 mg IV push q.4 hours for chest pain * Patient received 324 mg of aspirin in the ED * P.r.n. oxygen if needed * Nitroglycerin patch * cardiology on board * Trend labs and vital signs (2) Coronary artery disease: Code(s): I25.10 - Atherosclerotic heart disease of [place] coronary artery without angina pectoris Status: Chronic Assessment and Plan: * As evidenced by heart score of 5, previously PCIx2, and EKG abnormalities * See plan for 1. (3) Atrial fibrillation: Code(s): I48.91 - Unspecified atrial fibrillation Status: Chronic Assessment and Plan: * Continue Eliquis dosing * started on Dilt drip * Continue metoprolol * Continue Eliquis * Monitor on telemetry * Trend labs and vital signs * Cardiology team on board (4) HTN (hypertension): Code(s): I10 - Essential (primary) hypertension Status: Chronic Assessment and Plan: * Not in acute exacerbation, well controlled * Continue home medications * Continue to monitor vital signs. (5) Obese: Code(s): E66.9 - Obesity, unspecified Status: Chronic Assessment and Plan: * Recommend lifestyle changes and continuation of medications to control chronic health conditions. Subjective Date/time seen: 01/11/25 07:49 Interval history: per HPI; This is a very pleasant 69-year-old male patient with past medical history of hypertension, inflammatory arthritis on leflunomide, hyperlipidemia, diabetes mellitus, coronary artery disease status post VT and stent placement x2, TIA, CVA, atrial fibrillation on chronic Eliquis who comes to the emergency room today with a 1-1/2 hour prior to arrival onset of mid and substernal chest tightness that did not respond to antacids that he took at home nor 2 2 nitro that he took at home. He does note his nitroglycerin may have been . Patient denies any associated symptoms of nausea/vomiting/dyspnea and he denies any recent illnesses. Patient states it has been 10 years since he had 2 stents placed at [facility] and follows with cryogenics repairer Dr. Abner Beck. Patient is a nonsmoker having quit 20 years ago and is a nonuser of drugs or alcohol. Patient does have a first-degree family history of heart disease. Prior to arrival to the emergency room he had not been able to identify anything that exacerbated or alleviated his symptoms. In the emergency room a workup was performed that showed normal and stable vital signs, unremarkable metabolic panel and CBC, normal D-dimer, normal magnesium at 1.9, normal troponin x2 and normal coagulation studies. Initial EKG performed showed normal sinus rhythm 84 beats per minute with a first-degree AV block and occasional PVCs with a right bundle-branch block along with T-wave inversions in leads 3, V3, V4 and ST depression in leads V5 and V6. We do not have any EKGs in our system for comparison as patient has not received any cardiovascular care at our facility and a 2nd EKG was performed that again showed normal sinus rhythm 91 beats per minute be with the same ST and T-wave abnormalities at this time was reading as an acute VT. ER physician consulted Dr. Grier, who did not appreciate any acute STEMI. They felt as though there was some ectopy that was causing the machine to misread the test. He did not believe patient needed immediate intervention but rather observation in the current setting of abnormal EKG and presenting with chest pain in due to having a heart score of 5 which makes patient a moderate risk to have JAILENE. Patient was administered nitropaste in our emergency room and is currently pain-free. 01/11/25 Patient was seen and examiend at bedside. he is feeling better. his Chest pain improved. has Aflutter. cardiology team on board . started on Diltiazem drip. continue to monitor Review of Systems Review of Systems: All systems reviewed & are unremarkable except as noted in HPI and below Exam Const: General: comfortable and no acute distress Other: Obese male patient sitting on the side of the stretcher at this time in no acute distress HENMT: Face/Nose/Sinus: Normal nares present Mouth: Yes moist mucous membranes Eyes: General: appearance normal, both eyes and all related structures Neck: Neck: supple and no JVD Carotids: no bruits Lymphatic: lymphadenopathy not noted Chest: Other: Nontender to palpation and pain is not reproducible Resp: Effort & Inspection: normal respiratory effort Auscultation: clear to auscultation bilaterally Cardio: Rate: regular rate Rhythm: regular rhythm Heart sounds: no gal lops, Murmur heart sound present and no rubs Other: Grade 2 holosystolic GI: Inspection: non-distended Auscultation: normal bowel sounds Skin: General skin exam: normal color, no rashes or lesions noted, no [place] thema, No lesion and No rashes Lesions: no lesions noted Rashes: no rashes noted Wounds: no wounds Neuro: General: gait normal Speech: normal speech Motor exam (neuro): 5/5 motor strength present throughout and Normal motor muscle tone present throughout Sensory Exam: normal sensation Extrem: General: normal to inspection, no edema and no pedal edema Other: Moves all extremities fully and equally. Psych: Mental Status: mental status grossly normal Affect: normal affect Objective Data Vital Signs Vital Signs: Vital Signs - 24 hr 01/10/25 19:08 01/10/25 19:08 01/10/25 19:12 Temperature 98.8 F Pulse Rate 81 83 Respiratory Rate 13 21 H Blood Pressure 140/76 135/64 Pulse Oximetry 97 97 Oxygen Delivery Room Air 01/10/25 19:22 01/10/25 19:35 01/10/25 19:43 Temperature Pulse Rate 86 Respiratory Rate 16 Blood Pressure Pulse Oximetry 96 98 97 Oxygen Delivery Room Air 01/10/25 19:45 01/10/25 20:02 01/10/25 20:03 Temperature Pulse Rate 81 94 94 Respiratory Rate 13 16 19 Blood Pressure 120/87 Pulse Oximetry 96 95 95 Oxygen Delivery 01/10/25 20:12 01/10/25 20:41 01/10/25 20:45 Temperature Pulse Rate 91 91 90 Respiratory Rate 14 16 18 Blood Pressure 143/85 H Pulse Oximetry 96 99 98 Oxygen Delivery 01/10/25 21:37 01/10/25 21:42 01/10/25 22:02 Temperature Pulse Rate 91 96 91 Respiratory Rate 22 H 17 17 Blood Pressure 180/99 H 163/85 H Pulse Oximetry 97 97 Oxygen Delivery 01/10/25 22:03 01/10/25 22:09 01/10/25 22:15 Temperature Pulse Rate 92 92 100 Respiratory Rate 18 20 15 Blood Pressure Pulse Oximetry Oxygen Delivery 01/10/25 22:18 01/10/25 22:30 01/10/25 22:31 Temperature Pulse Rate 90 86 93 Respiratory Rate 18 14 13 Blood Pressure 127/78 Pulse Oximetry 95 94 Oxygen Delivery 01/10/25 22:54 01/10/25 23:00 01/10/25 23:02 Temperature Pulse Rate 88 90 93 Respiratory Rate 12 12 18 Blood Pressure 144/78 H Pulse Oximetry 94 95 94 Oxygen Delivery 01/10/25 23:12 01/10/25 23:15 01/11/25 00:10 Temperature 97.7 F Pulse Rate 95 93 74 Respiratory Rate 16 23 H 16 Blood Pressure 149/84 H 137/76 Pulse Oximetry 95 95 98 Oxygen Delivery 01/11/25 00:40 01/11/25 01:00 01/11/25 01:20 Temperature 98.2 F Pulse Rate 90 Respiratory Rate 17 16 Blood Pressure 133/68 Pulse Oximetry 97 100 96 Oxygen Delivery Room Air CPAP 01/11/25 01:30 01/11/25 03:07 01/11/25 03:14 Temperature 98.2 F Pulse Rate 78 Respiratory Rate 17 Blood Pressure 146/79 H Pulse Oximetry 100 96 96 Oxygen Delivery CPAP CPAP 01/11/25 04:00 01/11/25 04:39 01/11/25 06:00 Temperature Pulse Rate 71 79 72 Respiratory Rate 17 Blood Pressure Pulse Oximetry 96 Oxygen Delivery CPAP Meds/Results Medications: Active Medications Generic Name Dose Route Start Last Admin Trade Name Freq PRN Reason Stop Dose Admin Acetaminophen 650 mg 01/10/25 23:27 Acetaminophen 325 Mg Tablet PO Q4H PRN Mild Pain (1-3) or Fever Enoxaparin Sodium 40 mg 01/11/25 09:00 Enoxaparin 40 Mg/0.4 Ml Syringe SUB-Q DAILY JOE Morphine Sulfate 4 mg 01/11/25 00:33 Morphine Sulfate (*Crx) 4 Mg/Ml Inj IV PUSH Q4H PRN Pain Rated 7-10 Ondansetron HCl 4 mg 01/10/25 23:27 Ondansetron Inj 4 Mg/2 Ml Vial IV PUSH Q4H PRN Nausea Radiology Results: ITS Impressions Chest X-Ray 01/10/25 19:37 IMPRESSION: No acute cardiopulmonary pathology. Labs Labs: Laboratory Results - last 24 hr 01/10/25 01/10/25 01/10/25 19:07 20:14 22:21 WBC 9.5 RBC 4.97 Hgb 15.6 Hct 46.4 MCV 93.4 MCH 31.4 MCHC 33.6 RDW 12.5 Plt Count 179 MPV 10.3 Immature Gran % (Auto) 0.3 Neut % (Auto) 81.4 H Lymph % (Auto) 8.0 L [place] % (Auto) 7.8 Eos % (Auto) 2.0 Baso % (Auto) 0.5 Lymph # (Auto) 0.76 L [place] # (Auto) 0.7 H Eos # (Auto) 0.2 Baso # (Auto) 0.1 Abs Immat Gran (auto) 0.03 Absolute Neuts (auto) 7.7 H Absolute Nucleated RBC 0.000 Nucleated RBC % 0.0 PT 14.3 INR 1.1 APTT 38.6 H D-Dimer 0.36 Sodium 133 L Potassium 3.4 Chloride 95 L Carbon Dioxide 24 Anion Gap 14 H BUN 18 Creatinine 0.95 Estim Creat Clear Calc 88 Estimated GFR > 60 Glucose 97 Calcium 9.8 Magnesium 1.9 Total Bilirubin 0.8 AST 39 ALT 28 Alkaline Phosphatase 66 Troponin I < 0.012 < 0.012 NT-Pro-B Natriuret Pep 30 Total Protein 8.1 Albumin 4.6 Lipase 83 Influenza A (RT-PCR) Negative Influenza B (RT-PCR) Negative RSV (RT-PCR) Negative SARS-CoV-2 RNA (RT-PCR) Negative 01/11/25 01:14 WBC RBC Hgb Hct MCV MCH MCHC RDW Plt Count MPV Immature Gran % (Auto) Neut % (Auto) Lymph % (Auto) [place] % (Auto) Eos % (Auto) Baso % (Auto) Lymph # (Auto) [place] # (Auto) Eos # (Auto) Baso # (Auto) Abs Immat Gran (auto) Absolute Neuts (auto) Absolute Nucleated RBC Nucleated RBC % PT INR APTT D-Dimer Sodium Potassium Chloride Carbon Dioxide Anion Gap BUN Creatinine Estim Creat Clear Calc Estimated GFR Glucose Calcium Magnesium Total Bilirubin AST ALT Alkaline Phosphatase Troponin I < 0.012 NT-Pro-B Natriuret Pep Total Protein Albumin Lipase Influenza A (RT-PCR) Influenza B (RT-PCR) RSV (RT-PCR) SARS-CoV-2 RNA (RT-PCR) Quality VTE Prophylaxis VTE prophylaxis: pharmacologic ordered
[2025-01-11] MEDS: METOPROLOL SUCCINATE EXT REL 50 MG TABCR PO ×2 (09:07→16:18)
[2025-01-11] MEDS: SPIRONOLACTONE 50 MG TABLET PO (11:31)
--- NOTE | 2025-01-11 16:16 | PM.CNCAR ---
Assessment and Plan Assessment and plan (1) HTN (hypertension): Code(s): I10 - Essential (primary) hypertension Status: Chronic (2) Chest pain: Code(s): R07.9 - Chest pain, unspecified Status: Acute (3) Coronary artery disease: Code(s): I25.10 - Atherosclerotic heart disease of [place] coronary artery without angina pectoris Status: Chronic (4) Atrial fibrillation: Code(s): I48.91 - Unspecified atrial fibrillation Status: Chronic Plan 1. Atrial fibrillation 2. Hypertension 3. Hyperlipidemia 4. CAD, history of prior PCI; details not known 5. History of CVA -continue metoprolol -continue apixaban 5 mg twice daily -will start on IV diltiazem after a bolus does -monitor heart rate -stress test as an outpatient by his primary account administrator; Dr. Beck History of Present Illness History of Present Illness Consult date/time: 01/11/25 16:16 Reason For Visit: CP; HEART score 5; NTG responsive Narrative: This is a very pleasant 69-year-old male patient with past medical history of hypertension, inflammatory arthritis on leflunomide, hyperlipidemia, diabetes mellitus, coronary artery disease status post DC and stent placement x2, TIA, CVA, atrial fibrillation on chronic Eliquis who was admitted with AFib RVR He did have some atypical chest pain at the time of presentation during RVR. EKG did not show any dynamic ST or T-wave changes. Three sets of serial troponins are negative . 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 Surgical History Surgical History History of coronary artery stent placement x2, [facility]; approx 2014 Social History Social History Smoking status: Former smoker Tobacco type: cigarettes Smoking end date: 01/12/20 Alcohol intake: current Drinks per week: 6 Substance use: current Substance use type: marijuana Do You Feel Safe in your Home?: Yes Lack of Transportation: No Lack of Food: Never True Current Housing: I Have Housing Concerned About Future Housing: No Difficulty Paying Gas/Electric Bills: No Difficulty Paying for Meds: No Currently Unemployed: No Education: Master's Degree or Higher Difficulty w/ Childcare or Family Care: No Spiritual care concerns: No Meds Home Medications and Allergies Home Medications ?Medication ?Instructions ?Recorded ?Confirmed ?Type amlodipine 10 mg tablet 10 mg PO DAILY@39901/11/25 01/11/25 History apixaban 5 mg tablet (Eliquis) 5 mg PO BID 01/11/25 01/11/25 History atorvastatin 40 mg tablet 40 mg PO .daily 159901/11/25 01/11/25 History bupropion HCl 150 mg 24 hr tablet, 450 mg PO .daily 39901/11/25 01/11/25 History extended release clonidine HCl 0.3 mg tablet 0.3 mg PO Q8H 01/11/25 01/11/25 History hydralazine 100 mg tablet 100 mg PO .daily 39901/11/25 01/11/25 History hydralazine 25 mg tablet 75 mg PO Q8H 01/11/25 01/11/25 History leflunomide 10 mg tablet 10 mg PO .daily 159901/11/25 01/11/25 History metformin 500 mg tablet,extended 500 mg PO .daily 39901/11/25 01/11/25 History release 24 hr metoprolol succinate 50 mg 50 mg PO Q12H 01/11/25 01/11/25 History tablet,extended release 24 hr spironolactone 50 mg tablet 50 mg PO .daily noon 01/11/25 01/11/25 History tirzepatide (weight loss) 5 mg/0.5 5 mg subcut WEEKLY 01/11/25 01/11/25 History mL subcutaneous pen injector (Zepbound) Allergies Allergy/AdvReac Type Severity Reaction Status Date / Time lisinopril Allergy Intermediate angioedema Verified 01/10/25 19:10 Vital Signs Vital Signs - 24 hr 01/10/25 19:08 01/10/25 19:08 01/10/25 19:12 Temperature 37.1 C Pulse Rate 81 83 Respiratory Rate 13 21 H Blood Pressure 140/76 135/64 Pulse Oximetry 97 97 Oxygen Delivery Room Air 01/10/25 19:22 01/10/25 19:35 01/10/25 19:43 Temperature Pulse Rate 86 Respiratory Rate 16 Blood Pressure Pulse Oximetry 96 98 97 Oxygen Delivery Room Air 01/10/25 19:45 01/10/25 20:02 01/10/25 20:03 Temperature Pulse Rate 81 94 94 Respiratory Rate 13 16 19 Blood Pressure 120/87 Pulse Oximetry 96 95 95 Oxygen Delivery 01/10/25 20:12 01/10/25 20:41 01/10/25 20:45 Temperature Pulse Rate 91 91 90 Respiratory Rate 14 16 18 Blood Pressure 143/85 H Pulse Oximetry 96 99 98 Oxygen Delivery 01/10/25 21:37 01/10/25 21:42 01/10/25 22:02 Temperature Pulse Rate 91 96 91 Respiratory Rate 22 H 17 17 Blood Pressure 180/99 H 163/85 H Pulse Oximetry 97 97 Oxygen Delivery 01/10/25 22:03 01/10/25 22:09 01/10/25 22:15 Temperature Pulse Rate 92 92 100 Respiratory Rate 18 20 15 Blood Pressure Pulse Oximetry Oxygen Delivery 01/10/25 22:18 01/10/25 22:30 01/10/25 22:31 Temperature Pulse Rate 90 86 93 Respiratory Rate 18 14 13 Blood Pressure 127/78 Pulse Oximetry 95 94 Oxygen Delivery 01/10/25 22:54 01/10/25 23:00 01/10/25 23:02 Temperature Pulse Rate 88 90 93 Respiratory Rate 12 12 18 Blood Pressure 144/78 H Pulse Oximetry 94 95 94 Oxygen Delivery 01/10/25 23:12 01/10/25 23:15 01/11/25 00:10 Temperature 36.5 C Pulse Rate 95 93 74 Respiratory Rate 16 23 H 16 Blood Pressure 149/84 H 137/76 Pulse Oximetry 95 95 98 Oxygen Delivery 01/11/25 00:40 01/11/25 01:00 01/11/25 01:20 Temperature 36.8 C Pulse Rate 90 Respiratory Rate 17 16 Blood Pressure 133/68 Pulse Oximetry 97 100 96 Oxygen Delivery Room Air CPAP 01/11/25 01:30 01/11/25 03:07 01/11/25 03:14 Temperature 36.8 C Pulse Rate 78 Respiratory Rate 17 Blood Pressure 146/79 H Pulse Oximetry 100 96 96 Oxygen Delivery CPAP CPAP 01/11/25 04:00 01/11/25 04:39 01/11/25 06:00 Temperature Pulse Rate 71 79 72 Respiratory Rate 17 Blood Pressure Pulse Oximetry 96 Oxygen Delivery CPAP 01/11/25 08:00 01/11/25 08:00 01/11/25 08:00 Temperature 36.9 C Pulse Rate 72 80 89 Respiratory Rate 17 8 L Blood Pressure 147/80 H Pulse Oximetry 96 98 Oxygen Delivery CPAP 01/11/25 09:07 01/11/25 10:00 01/11/25 10:41 Temperature Pulse Rate 147 H 131 H 81 Respiratory Rate 18 Blood Pressure 138/78 Pulse Oximetry Oxygen Delivery 01/11/25 12:00 01/11/25 12:00 01/11/25 12:00 Temperature 36.7 C Pulse Rate 72 72 100 Respiratory Rate 16 17 Blood Pressure 134/71 Pulse Oximetry 95 96 Oxygen Delivery CPAP Exam Narrative: GENERAL: Well-appearing, well-nourished, and in no acute distress. HEAD: Normocephalic, atraumatic. EYES: Non injected, non icteric ENT: Nares clear, no rhinorrhea or epistaxis. Gross auditory acuity intact. NECK: Supple. No meningismus. CHEST: Speaking in full sentences. No respiratory distress. HEART: Regular rate and rhythm. . ABDOMEN: Obese but Soft, nondistended. EXTREMITIES: Normal range of motion. 1+ bilateral lower extremity edema. SKIN: Warm, dry, no rash. NEURO: No focal deficits. Alert and oriented. Answering questions. Following commands. Normal speech without aphasia or dysarthria. PSYCH: Normal mood and affect. Const: General: comfortable and no acute distress Other: Obese male patient sitting on the side of the stretcher at this time in no acute distress HENMT: Face/Nose/Sinus: Normal nares present Mouth: Yes moist mucous membranes Eyes: General: appearance normal, both eyes and all related structures Neck: Neck: supple and no JVD Carotids: no bruits Lymphatic: lymphadenopathy not noted Chest: Other: Nontender to palpation and pain is not reproducible Resp: Effort & Inspection: normal respiratory effort Auscultation: clear to auscultation bilaterally Cardio: Rate: regular rate Rhythm: regular rhythm Heart sounds: no gallops, Murmur heart sound present and no rubs Other: Grade 2 holosystolic GI: Inspection: non-distended Auscultation: normal bowel sounds Skin: General skin exam: normal color, no rashes or lesions noted, no erythema, No lesion and No rashes Lesions: no lesions noted Rashes: no rashes noted Wounds: no wounds Neuro: General: gait normal Speech: normal speech Motor exam (neuro): 5/5 motor strength present throughout and Normal motor muscle tone present throughout Sensory Exam: normal sensation Extrem: General: normal to inspection, no edema and no pedal edema Other: Moves all extremities fully and equally. Psych: Mental Status: mental status grossly normal Affect: normal affect Results Labs and Meds 01/10/25 19:07 01/10/25 19:07 Lab results: Cardiac Enzymes 01/10/25 01/10/25 01/11/25 Range/Units 19:07 22:21 01:14 AST 39 (17-59) U/L Troponin I < 0.012 < 0.012 < 0.012 (0.000-0.034) ng/mL Coagulation 01/10/25 Range/Units 19:07 PT 14.3 (11.1-14.7) Seconds APTT 38.6 H (22.3-36.8) Seconds CBC 01/10/25 Range/Units 19:07 WBC 9.5 (4.5-10.0) K/mm3 RBC 4.97 (4.6-6.20) M/mm3 Hgb 15.6 (14.0-18.0) g/dL Hct 46.4 (42.0-52.0) % Plt Count 179 (150-375) k/mm3 Lymph # (Auto) 0.76 L (0.9-3.2) K/mm3 [place] # (Auto) 0.7 H (0.1-0.6) K/mm3 Eos # (Auto) 0.2 (0-0.3) K/mm3 Baso # (Auto) 0.1 (0.0-0.1) K/mm3 Comprehensive Metabolic Panel 01/10/25 Range/Units 19:07 Sodium 133 L (137-145) mmol/L Potassium 3.4 (3.4-5.0) mmol/L Chloride 95 L (98-107) mmol/L Carbon Dioxide 24 (22-30) mmol/L BUN 18 (9-20) mg/dL Creatinine 0.95 (0.7-1.3) mg/dL Glucose 97 (65-110) mg/dL Calcium 9.8 (8.4-10.2) mg/dL AST 39 (17-59) U/L ALT 28 (6-50) U/L Alkaline Phosphatase 66 (38-126) U/L Total Protein 8.1 (6.3-8.2) g/dL Albumin 4.6 (3.5-5.1) g/dL Intake and Output 01/11/25 01/11/25 01/11/25 07:59 15:59 23:59 Other: # Unmeasured Voids 1 Patient Weight 01/11/25 23:59 Weight 116.9 kg
[2025-01-11] MEDS: LEFLUNOMIDE 10 MG TABLET PO (16:18)
[2025-01-11] MEDS: ATORVASTATIN 40 MG TABLET PO (16:18)
[2025-01-11] MEDS: APIXABAN 5 MG TABLET PO (18:42)
[2025-01-12] VITALS (16 sets, daily range): BP systolic 135–174; BP diastolic 67–93; PULSE 60–95; RESP 16–20; TEMP 36.8–37.3; O2SAT 94–98
--- NOTE | 2025-01-12 01:27 | ECG_ITS ---
Test Date: 2025-01-12 01:30:55 Measurements Intervals [place] Rate: 112 P: 0 OR: 0 QRS: 66 QRSD: 164 T: 44 QT: 366 QTc: 501 Interpretive Statements ATRIAL FLUTTER/TACHYCARDIA WITH RAPID VENTRICULAR RESPONSE RIGHT BUNDLE BRANCH BLOCK [120+ ms QRS DURATION, UPRIGHT V1, 40+ ms S IN I/aVL/V4/V5/V6] ST DEPRESSION, CONSIDER SUBENDOCARDIAL INJURY [0.1+ mV ST DEPRESSION] WARNING: DATA QUALITY MAY AFFECT INTERPRETATION Compared to ECG 01/11/2025 08:36:16 ST (T wave) deviation now present Electronically Signed On 01-12-2025 16:39:13 CDT by Mary Gonzalez
--- NOTE | 2025-01-12 01:32 | ECG_ITS ---
Test Date: 2025-01-12 01:32:14 Measurements Intervals [place] Rate: 120 P: 0 MN: 0 QRS: 63 QRSD: 164 T: 36 QT: 361 QTc: 512 Interpretive Statements ATRIAL FLUTTER/TACHYCARDIA WITH RAPID VENTRICULAR RESPONSE RIGHT BUNDLE BRANCH BLOCK [120+ ms QRS DURATION, UPRIGHT V1, 40+ ms S IN I/aVL/V4/V5/V6] ST DEPRESSION, CONSIDER SUBENDOCARDIAL INJURY [0.1+ mV ST DEPRESSION] Compared to ECG 01/12/2025 01:30:55 No significant changes Electronically Signed On 01-14-2025 13:54:39 CDT by Gucci Dorantes M.D.
--- NOTE | 2025-01-12 01:42 | P.PNCROSS_ITS ---
Event Note Event Note Event Note: I am called by nursing staff at 0137, with reports that patient has gone back i nto AFib RVR. EKG is performed that shows atrial fibrillation with right bundle-branch block, current rate of 1 teens. Blood pressure 153/67. Patient had a 12.5 mg diltiazem IV push yesterday and it converted him so he did not require initiation diltiazem drip that time. Given patient's adequate blood pressure will go ahead and initiate diltiazem drip to start at this time with initial rate of 5 mg.
[2025-01-12] MEDS: dilTIAZem 100 MG/100 ML 100 MG/100 ML BAG IV CONT (01:44)
--- NOTE | 2025-01-12 02:09 | PC.NURSE ---
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 pt remains AXO 4 asymptomatic will continue to monitor heart rate closely.
[2025-01-12] MEDS: APIXABAN 5 MG TABLET PO (03:04)
[2025-01-12] MEDS: METOPROLOL SUCCINATE EXT REL 50 MG TABCR PO (03:04)
[2025-01-12] MEDS: buPROPion HCL XL (24 HR) 150 MG TABCR 450 MG PO (03:04)
[2025-01-12 04:29] LABS: Hematocrit 48.4 % (42.0-52.0); Hemoglobin 15.8 g/dL (14.0-18.0); Immature Granulocyte Percent A 0.2 % (0-0.5); Lymphocytes Absolute Auto 1.43 K/mm3 (0.9-3.2); Mean Corpuscular HGB Conc 32.6 g/dl (32-36); Mean Corpuscular Hemoglobin 31.0 pg (26-34); Mean Corpuscular Volume 94.9 fl (80-100); Nucleated Red Blood Cells Absolute Auto 0.000 K/mm3 (0.0-0.012); Nucleated Red Blood Cells Perc 0.0 % (0.0-0.2); Platelet Count Result 169 k/mm3 (150-375); Red Blood Count 5.10 M/mm3 (4.6-6.20); White Blood Count 5.9 K/mm3 (4.5-10.0)
[2025-01-12 04:42] LABS: Alanine Aminotransferase 23 U/L (6-50); Albumin Level 4.2 g/dL (3.5-5.1); Alkaline Phosphatase 66 U/L (38-126); Anion Gap 10 mmol/L (4-12); Aspartate Amino Transferase 34 U/L (17-59); Bilirubin,Total 1.2 mg/dL (0.2-1.3); Blood Urea Nitrogen 18 mg/dL (9-20); Calcium 9.2 mg/dL (8.4-10.2); Carbon Dioxide 26 mmol/L (22-30); Chloride 101 mmol/L (98-107); Estimated CRCL calculation 96 ml/min; Estimated Glomerular Filt Rate > 60; Glucose 119 mg/dL (65-110); Magnesium 2.2 mg/dL (1.6-2.3); Potassium 3.3 mmol/L (3.4-5.0); Sodium 137 mmol/L (137-145); Total Protein 7.5 g/dL (6.3-8.2)
[2025-01-12 04:43] LABS: INR 1.1; Prothrombin Time 14.8 Seconds (11.1-14.7)
[2025-01-12 04:44] LABS: Partial Thromboplastin Time 41.7 Seconds (22.3-36.8)
--- NOTE | 2025-01-12 08:40 | P.PNCA_ITS ---
Progress Note: A&P Assessment and Plan (1) HTN (hypertension): Code(s): I10 - Essential (primary) hypertension Status: Chronic (2) Chest pain: Code(s): R07.9 - Chest pain, unspecified Status: Acute (3) Coronary artery disease: Code(s): I25.10 - Atherosclerotic heart disease of [place] coronary artery without angina pectoris Status: Chronic (4) Atrial fibrillation: Code(s): I48.91 - Unspecified atrial fibrillation Status: Chronic Plan 1. Atrial fibrillation 2. Hypertension 3. Hyperlipidemia 4. CAD, history of prior PCI; details not known 5. History of CVA -continue metoprolol -continue apixaban 5 mg twice daily -switched to oral diltiazem 180 mg once daily -monitor heart rate -stress test as an outpatient by his primary full stack python developer; Dr. Beck -can be discharged home later in the day on his current medications he wants to go home Subjective Date/time seen: 01/12/25 08:40 Interval history: Was not started on IV diltiazem infusion as he converted after the IV bolus. Was not aware. He went into AFib RVR at night and was started on diltiazem infusion Currently sinus Blood pressure slightly elevated Wants to go home Review of Systems Review of Systems: All systems reviewed & are unremarkable except as noted in HPI and below Exam Narrative: GENERAL: Well-appearing, well-nourished, and in no acute distress. HEAD: Normocephalic, atraumatic. EYES: Non injected, non icteric ENT: Nares clear, no rhinorrhea or epistaxis. Gross auditory acuity intact. NECK: Supple. No meningismus. CHEST: Speaking in full sentences. No respiratory distress. HEART: Regular rate and rhythm. . ABDOMEN: Obese but Soft, nondistended. EXTREMITIES: Normal range of motion. 1+ bilateral lower extremity edema. SKIN: Warm, dry, no rash. NEURO: No focal deficits. Alert and oriented. Answering questions. Following commands. Normal speech without aphasia or dysarthria. PSYCH: Normal mood and affect. Const: General: comfortable and no acute distress Other: Obese male patient sitting on the side of the stretcher at this time in no acute distress HENMT: Face/Nose/Sinus: Normal nares present Mouth: Yes moist mucous membranes Eyes: General: appearance normal, both eyes and all related structures Neck: Neck: supple and no JVD Carotids: no bruits Lymphatic: lymphadenopathy not noted Chest: Other: Nontender to palpation and pain is not reproducible Resp: Effort & Inspection: normal respiratory effort Auscultation: clear to auscultation bilaterally Cardio: Rate: regular rate Rhythm: regular rhythm Heart sounds: no gallops, Murmur heart sound present and no rubs Other: Grade 2 holosystolic GI: Inspection: non-distended Auscultation: normal bowel sounds Skin: General skin exam: normal color, no rashes or lesions noted, no erythema, No lesion and No rashes Lesions: no lesions noted Rashes: no rashes noted Wounds: no wounds Neuro: General: gait normal Speech: normal speech Motor exam (neuro): 5/5 motor strength present throughout and Normal motor muscle tone present throughout Sensory Exam: normal sensation Extrem: General: normal to inspection, no edema and no pedal edema Other: Moves all extremities fully and equally. Psych: Mental Status: mental status grossly normal Affect: normal affect Objective Data Vital Signs Vital Signs: Vital Signs - 24 hr 01/11/25 09:07 01/11/25 10:00 01/11/25 10:41 Temperature Pulse Rate 147 H 131 H 81 Respiratory Rate 18 Blood Pressure 138/78 Pulse Oximetry Oxygen Delivery Fraction of Inspired Oxygen 01/11/25 12:00 01/11/25 12:00 01/11/25 12:00 Temperature 36.7 C Pulse Rate 72 72 100 Respiratory Rate 16 17 Blood Pressure 134/71 Pulse Oximetry 95 96 Oxygen Delivery Room Air Fraction of Inspired Oxygen 01/11/25 14:00 01/11/25 16:00 01/11/25 16:00 Temperature 36.9 C Pulse Rate 91 82 80 Respiratory Rate 18 Blood Pressure 131/77 Pulse Oximetry 96 Oxygen Delivery Fraction of Inspired Oxygen 01/11/25 16:00 01/11/25 16:18 01/11/25 18:00 Temperature Pulse Rate 72 85 86 Respiratory Rate 17 Blood Pressure Pulse Oximetry 96 Oxygen Delivery Room Air Fraction of Inspired Oxygen 01/11/25 19:36 01/11/25 19:47 01/11/25 20:00 Temperature 36.8 C Pulse Rate 82 96 83 Respiratory Rate 20 16 18 Blood Pressure 128/78 Pulse Oximetry 92 94 96 Oxygen Delivery Room Air Room Air Fraction of Inspired Oxygen 21 01/11/25 20:00 01/11/25 22:00 01/11/25 23:17 Temperature Pulse Rate 98 82 82 Respiratory Rate 20 Blood Pressure Pulse Oximetry 98 Oxygen Delivery CPAP Fraction of Inspired Oxygen 01/11/25 23:40 01/12/25 00:00 01/12/25 01:44 Temperature 36.7 C Pulse Rate 84 83 95 Respiratory Rate 16 Blood Pressure 149/80 H 153/67 H Pulse Oximetry 95 Oxygen Delivery Fraction of Inspired Oxygen 01/12/25 01:47 01/12/25 02:00 01/12/25 03:04 Temperature Pulse Rate 85 79 Respiratory Rate Blood Pressure 153/67 H Pulse Oximetry Oxygen Delivery Fraction of Inspired Oxygen 01/12/25 03:16 01/12/25 04:00 01/12/25 04:08 Temperature 37.0 C Pulse Rate 83 70 73 Respiratory Rate 20 17 Blood Pressure 135/74 135/77 Pulse Oximetry 98 95 Oxygen Delivery Room Air Fraction of Inspired Oxygen 01/12/25 06:00 01/12/25 06:00 01/12/25 06:08 Temperature Pulse Rate 70 71 80 Respiratory Rate 17 Blood Pressure 149/81 H 141/81 H Pulse Oximetry 94 Oxygen Delivery Fraction of Inspired Oxygen 01/12/25 08:00 Temperature 37.3 C Pulse Rate 75 Respiratory Rate 16 Blood Pressure 173/93 H Pulse Oximetry 96 Oxygen Delivery Fraction of Inspired Oxygen Intake/Output Intake/Output: Intake & Output 01/09/25 01/10/25 01/11/25 01/12/25 23:59 23:59 23:59 23:59 Intake Total 1560 262 Output Total 900 Balance 660 262 Meds/Results Medications: Active Medications Generic Name Dose Route Start Last Admin Trade Name Freq PRN Reason Stop Dose Admin Acetaminophen 650 mg 01/10/25 23:27 Acetaminophen 325 Mg Tablet PO Q4H PRN Mild Pain (1-3) or Fever Apixaban 5 mg 01/11/25 16:00 01/12/25 03:04 Apixaban 5 Mg Tablet PO 5 mg 0400,1600 [facility] Administration Atorvastatin Calcium 40 mg 01/11/25 16:00 01/11/25 16:18 Atorvastatin 40 Mg Tablet PO 40 mg DAILY@1600 JOE Administration Bupropion HCl 450 mg 01/12/25 04:00 01/12/25 03:04 Bupropion Hcl Xl (24 Hr) 150 Mg Tabcr PO 450 mg DAILY@0400 [facility] Administration Clonidine HCl 0.3 mg 01/11/25 20:00 Clonidine Hcl 0.1 Mg Tablet PO 0000,0400,2000 [facility] Diltiazem HCl 180 mg 01/12/25 09:00 Diltiazem Hcl Cd 180 Mg Cap.24hr PO QAM [facility] Leflunomide 10 mg 01/11/25 16:00 01/11/25 16:18 Leflunomide 10 Mg Tablet PO 10 mg DAILY@1600 [facility] Administration Metoprolol Succinate 50 mg 01/11/25 16:00 01/12/25 03:04 Metoprolol Succinate Ext Rel 50 Mg Tabcr PO 50 mg 0400,1600 [facility] Administration Miscellaneous Information 1 each 01/11/25 00:01 Zepbound Weekly Is Nonformulary. Hold Whriya Hospitalized? XX 02/10/25 00:00 CLARIFY [facility] Morphine Sulfate 4 mg 01/11/25 00:33 Morphine Sulfate (*Crx) 4 Mg/Ml Inj IV PUSH Q4H PRN Pain Rated 7-10 Non-Formulary Medication 5 mg 01/11/25 09:00 Tirzepatide (Weight Loss) [Zepbound] SUB-Q 02/10/25 08:59 WEEKLY [facility] Ondansetron HCl 4 mg 01/10/25 23:27 Ondansetron Inj 4 Mg/2 Ml Vial IV PUSH Q4H PRN Nausea Potassium Chloride 40 meq 01/12/25 09:00 Potassium Chloride 20 Meq Packet (For Liquid) PO DAILY [facility] Spironolactone 50 mg 01/11/25 12:00 01/11/25 11:31 Spironolactone 50 Mg Tablet PO 50 mg NOON [facility] Administration Radiology Results: ITS Impressions Chest X-Ray 01/10/25 19:37 IMPRESSION: No acute cardiopulmonary pathology. Labs Labs: Laboratory Results - last 24 hr 01/12/25 03:39 WBC 5.9 RBC 5.10 Hgb 15.8 Hct 48.4 MCV 94.9 MCH 31.0 MCHC 32.6 RDW 12.7 Plt Count 169 MPV 11.0 H Immature Gran % (Auto) 0.2 Neut % (Auto) 60.1 Lymph % (Auto) 24.3 [place] % (Auto) 12.6 H Eos % (Auto) 2.0 Baso % (Auto) 0.8 Lymph # (Auto) 1.43 [place] # (Auto) 0.7 H Eos # (Auto) 0.1 Baso # (Auto) 0.1 Abs Immat Gran (auto) 0.01 Absolute Neuts (auto) 3.5 Absolute Nucleated RBC 0.000 Nucleated RBC % 0.0 PT 14.8 H INR 1.1 APTT 41.7 H Sodium 137 Potassium 3.3 L Chloride 101 Carbon Dioxide 26 Anion Gap 10 BUN 18 Creatinine 0.85 Estim Creat Clear Calc 96 Estimated GFR > 60 Glucose 119 H Calcium 9.2 Magnesium 2.2 Total Bilirubin 1.2 AST 34 ALT 23 Alkaline Phosphatase 66 Total Protein 7.5 Albumin 4.2
[2025-01-12] MEDS: POTASSIUM CHLORIDE 20 MEQ PACKET (FOR LIQUID) 40 MEQ PO (08:42)
[2025-01-12] MEDS: dilTIAZem HCL CD 180 MG CAP.24HR PO (09:41)
[2025-01-12] MEDS: SPIRONOLACTONE 50 MG TABLET PO (12:13)
--- NOTE | 2025-01-12 13:07 | P.DS_ITS ---
DS: Admitting Diagnosis Discharge Date 01/12/25 Admitting Diagnosis Afib RVR DS: Discharge Diagnosis Discharge Diagnosis (1) Chest pain: Code(s): R07.9 - Chest pain, unspecified Status: Acute Assessment and Plan: * Three troponin rule out * Monitor on telemetry * P.r.n. morphine 4 mg IV push q.4 hours for chest pain * Patient received 324 mg of aspirin in the ED * P.r.n. oxygen if needed * Nitroglycerin patch * cardiology on board * Trend labs and vital signs (2) Coronary artery disease: Code(s): I25.10 - Atherosclerotic heart disease of [place] coronary artery without angina pectoris Status: Chronic Assessment and Plan: * As evidenced by heart score of 5, previously PCIx2, and EKG abnormalities * See plan for 1. (3) Atrial fibrillation: Code(s): I48.91 - Unspecified atrial fibrillation Status: Chronic Assessment and Plan: * Continue Eliquis dosing * started on Dilt drip * Continue metoprolol * Continue Eliquis * Monitor on telemetry * Trend labs and vital signs * Cardiology team on board (4) HTN (hypertension): Code(s): I10 - Essential (primary) hypertension Status: Chronic Assessment and Plan: * Not in acute exacerbation, well controlled * Continue home medications * Continue to monitor vital signs. (5) Obese: Code(s): E66.9 - Obesity, unspecified Status: Chronic Assessment and Plan: * Recommend lifestyle changes and continuation of medications to control chronic health conditions. DS: Summary Hospital Course Hospital Course: per HPI; This is a very pleasant 69-year-old male patient with past medical history of hypertension, inflammatory arthritis on leflunomide, hyperlipidemia, diabetes mellitus, coronary artery disease status post UT and stent placement x2, TIA, CVA, atrial fibrillation on chronic Eliquis who comes to the emergency room today with a 1-1/2 hour prior to arrival onset of mid and substernal chest tightness that did not respond to antacids that he took at home nor 2 2 nitro that he took at home. He does note his nitroglycerin may have been . Patient denies any associated symptoms of nausea/vomiting/dyspnea and he denies any recent illnesses. Patient states it has been 10 years since he had 2 stents placed at [place] and follows with terminal gauger Dr. Abner Beck. Patient is a nonsmoker having quit 20 years ago and is a nonuser of drugs or alcohol. Patient does have a first-degree family history of heart disease. Prior to arrival to the emergency room he had not been able to identify anything that exacerbated or alleviated his symptoms. In the emergency room a workup was performed that showed normal and stable vital signs, unremarkable metabolic panel and CBC, normal D-dimer, normal magnesium at 1.9, normal troponin x2 and normal coagulation studies. Initial EKG performed showed normal sinus rhythm 84 beats per minute with a first-degree AV block and occasional PVCs with a right bundle-branch block along with T-wave inversions in leads 3, V3, V4 and ST depression in leads V5 and V6. We do not have any EKGs in our system for comparison as patient has not received any cardiovascular care at our facility and a 2nd EKG was performed that again showed normal sinus rhythm 91 beats per minute be with the same ST and T-wave abnormalities at this time was reading as an acute UT. ER physician consulted Dr. Grier, who did not appreciate any acute STEMI. They felt as though there was some ectopy that was causing the machine to misread the test. He did not believe patient needed immediate intervention but rather observation in the current setting of abnormal EKG and presenting with chest pain in due to having a heart score of 5 which makes patient a moderate risk to have JAILENE. Patient was administered nitropaste in our emergency room and is currently pain-free. 01/11/25 Patient was seen and examined at bedside. he is feeling better. his Chest pain improved. has Aflutter. cardiology team on board . started on Diltiazem drip. continue to monitor 01/12/25 Patient was seen and examined at bedside. He is feeling better. overnight went back to Afib RVR. started on dilt drip. this morning converted back to sinus rhythm. cardiology team on board dilt drip stopped. started on dilt po along with Metoprol. heart rate has been stable. will discharge patient home . he needs follow up with PCP and cardiology as outpatient. Status at Discharge Overall status at discharge: patient is back to baseline Time Spent with Patient Time attestation: Total time spent providing and/or coordinating discharge services: Time spent: Greater than 30 minutes Exam Const: General: comfortable and no acute distress Other: Obese male patient sitting on the side of the stretcher at this time in no acute distress HENMT: Face/Nose/Sinus: Normal nares present Mouth: Yes moist mucous membranes Eyes: General: appearance normal, both eyes and all related structures Neck: Neck: supple and no JVD Carotids: no bruits Lymphatic: lymphadeno alisha not noted Chest: Other: Nontender to palpation and pain is not reproducible Resp: Effort & Inspection: normal respiratory effort Auscultation: clear to auscultation bilaterally Cardio: Rate: regular rate Rhythm: regular rhythm Heart sounds: no gallops, Murmur heart sound present and no rubs Other: Grade 2 holosystolic GI: Inspection: non-distended Auscultation: normal bowel sounds Skin: General skin exam: normal color, no rashes or lesions noted, no erythema, No lesion and No rashes Lesions: no lesions noted Rashes: no rashes noted Wounds: no wounds Neuro: General: gait normal Speech: normal speech Motor exam (neuro): 5/5 motor strength present throughout and Normal motor muscle tone present throughout Sensory Exam: normal sensation Extrem: General: normal to inspection, no edema and no pedal edema Other: Moves all extremities fully and equally. Psych: Mental Status: mental status grossly normal Affect: normal affect DS: Data Data Completed and Pending Labs on day of discharge: Labs from last 24 hours 01/12/25 03:39 WBC 5.9 RBC 5.10 Hgb 15.8 Hct 48.4 MCV 94.9 MCH 31.0 MCHC 32.6 RDW 12.7 Plt Count 169 MPV 11.0 H Immature Gran % (Auto) 0.2 Neut % (Auto) 60.1 Lymph % (Auto) 24.3 Hyde % (Auto) 12.6 H Eos % (Auto) 2.0 Baso % (Auto) 0.8 Lymph # (Auto) 1.43 Hyde # (Auto) 0.7 H Eos # (Auto) 0.1 Baso # (Auto) 0.1 Abs Immat Gran (auto) 0.01 Absolute Neuts (auto) 3.5 Absolute Nucleated RBC 0.000 Nucleated RBC % 0.0 PT 14.8 H INR 1.1 APTT 41.7 H Sodium 137 Potassium 3.3 L Chloride 101 Carbon Dioxide 26 Anion Gap 10 BUN 18 Creatinine 0.85 Estim Creat Clear Calc 96 Estimated GFR > 60 Glucose 119 H Calcium 9.2 Magnesium 2.2 Total Bilirubin 1.2 AST 34 ALT 23 Alkaline Phosphatase 66 Total Protein 7.5 Albumin 4.2 Discharge Plan Discharge Attending physician on discharge: Mira Shell Consulting providers: Félix Grier Discharging Clinician: Mira Shell Anticipated Discharge Date/Time: 01/12/25 13:13 Patient Disposition: Home Activity: as tolerated Diet: heart healthy Discharge Instructions: -continue metoprolol -continue apixaban 5 mg twice daily -switched to oral diltiazem 180 mg once daily -monitor heart rate -stress test as an outpatient by his primary terminal gauger; Dr. Beck check your blood pressure and heart rate regularly and report to the pCP Patient Instructions: Antibiotic Form, Enoxaparin (By injection), Apixaban (By mouth) Patient Language: Pakistani Stand Alone Forms: General Discharge Information Follow-up/Referrals: Yvonne,Lito Smith MD [Primary Care Provider] - 1 Week Discharge Medications: New diltiazem HCl 180 mg Capsule,Ext.Rel 24h Degradable 180 mg PO QAM Qty: 30 0RF Continued amlodipine 10 mg tablet 10 mg PO DAILY@0400 atorvastatin 40 mg tablet 40 mg PO .daily 1600 clonidine HCl 0.3 mg tablet 0.3 mg PO Q8H Patient Comments: Takes at 0400, 0000, 2000 hydralazine 25 mg tablet 75 mg PO Q8H Patient Comments: takes at noon and 8 pm hydralazine 100 mg tablet 100 mg PO .daily 0400 bupropion HCl 150 mg tablet extended release 24 hr 450 mg PO .daily 0400 leflunomide 10 mg tablet 10 mg PO .daily 1600 metformin 500 mg tablet extended release 24 hr 500 mg PO .daily 0400 metoprolol succinate 50 mg tablet extended release 24 hr 50 mg PO Q12H Patient Comments: takes 0400 and 1600 spironolactone 50 mg tablet 50 mg PO .daily noon Zepbound 5 mg/0.5 mL pen injector 5 mg SUBCUT WEEKLY Eliquis 5 mg tablet 5 mg PO BID Patient Comments: takes 0400 and 1600 Date of admission: 01/11/25 08:02 Primary Care Provider: Yvonne,Lito Smith Admitting Provider: Rob Holman Attending physician on admission: Mira Shell Condition: Stable Quality VTE Prophylaxis VTE prophylaxis: pharmacologic ordered
--- NOTE | 2025-01-14 10:05 | ECG_ITS ---
Test Date: 2025-01-14 10:05:12 Measurements Intervals Banks Rate: 114 P: 216 NE: 91 QRS: 28 QRSD: 66 T: 247 QT: 390 QTc: 538 Interpretive Statements Baseline artifact limits interpretation Possible sinus rhythm LOW QRS VOLTAGE IN PRECORDIAL LEADS [QRS DEFLECTION < 1.0 mV IN CHEST LEADS] ST DEVIATION AND MODERATE T-WAVE ABNORMALITY, Compared to ECG 01/12/2025 01:32:14 sinus rhythm has replaced atrial flutter low-voltage QRS complexes noted Electronically Signed On 01-15-2025 13:37:21 CDT by Gucci Dorantes M.D.
== END 2025-01-12 14:39 | disposition home or self-care (01) | DRG 313 ==
LOC: ANHED 23:27 → ANHIMU 23:53
PROVIDERS: Nurse Practitioner Adult Health; Student in an Organized Health Care Education/Training Program; Admitting Provider Internal Medicine; Emergency Provider Student in an Organized Health Care Education/Training Program; PCP Internal Medicine; Visit Provider Internal Medicine
DX: R07.9 Chest pain, unspecified (principal); I48.20 Chronic atrial fibrillation, unspecified; I25.10 Atherosclerotic heart disease of native coronary artery without angina pectoris; E66.9 Obesity, unspecified; E78.5 Hyperlipidemia, unspecified; E11.9 Type 2 diabetes mellitus without complications; I10 Essential (primary) hypertension; M19.90 Unspecified osteoarthritis, unspecified site; Z79.01 Long term (current) use of anticoagulants; I25.2 Old myocardial infarction; Z95.5 Presence of coronary angioplasty implant and graft; Z86.73 Personal history of transient ischemic attack (TIA), and cerebral infarction without residual deficits; Z87.891 Personal history of nicotine dependence; Z68.33 Body mass index [BMI] 33.0-33.9, adult
CPT/HCPCS: 36415; 71046; 80053; 83690; 83735; 83880; 84484; 85025; 85380; 85610; 85730; 87637; 93005; 94640; 96374; 96375; 99285; A9270; G0378

== ENCOUNTER 2025-04-28 08:45 | Outpatient (RCR) | payer MEDICARE, SELFPAY ==
--- NOTE | 2025-03-22 15:28 | OPREHPOC ---
Outpatient Therapy Plan of Care This is a Multidisciplinary Plan of Care that may contain components documented by all disciplines (PT, OT, and ST.) PT Problem 1 PT Problem #1 Knowledge Deficit PT Goal 1 Goal / Goal Update 1. Patient to demonstrate independence with HEP for improved self-reliance of symptom management. Target Visit 4 PT Problem 2 PT Problem #2 Pain PT Goal 1 Goal / Goal Update 1. Patient to decrease subjective reports of pain to <3/10 for improved ADL tolerance. 2. Pt will increase LEFS score by at least 9 points in order to demonstrate the minimal clinically important difference (MCID) in functional improvement. Target Visit 8 PT Problem 3 PT Problem #3 Impaired Strength PT Goal 1 Goal / Goal Update 1. Patient will demonstrate improved strength of the bilateral hip abductors and extensors to 4+/5 on manual muscle testing in order to improve gait stability and stair negotiation. Target Visit 8 PT Problem 4 PT Problem #4 Impaired Functional Mobility PT Goal 1 Goal / Goal Update 1. - Patient will demonstrate an increase in hamstring flexibility, improving passive knee extension in the 90/90 position from to within -20 ? of full extension to allow for improved sitting posture and reduced strain during gait. 2. Pt will report full return to walking program with lower pain levels. Target Visit 8
--- NOTE | 2025-03-22 15:28 | PTOPEVAL1 ---
Assessment and note entered by Chay Hazel PT Evaluation Information Assessment Status Evaluation ICD-10 Condition Codes (PT) Pain in right hip M25.551,Pain in left hip M25.552 Other ICD-10 Condition Codes ( L40.50, Z79.899. M15.0, M76.30 PT) Onset Aug 2024 Subjective Information Pt reports when he is walking after a few minutes pain will set in that feels like a deep ache in both hips that makes it very uncomfortable to walk . Pt states he used to walk 10,000 steps a day and now struggles to get 5,000 steps. Pt states he would like to return to a full walking program and have less pain. Reported Pain Level Pain Score 0: Self Report Assessment PT Clinical Summary Patient presents to physical therapy with a primary issue of Sudarshan hip pain when walking. Patient demonstrates lateral hip weakness, decreased mobility, abnormal posture, gait deficit , and decreased flexibility that limit their ability to perform activities of daily living and functional movements. Patient will benefit from skilled physical therapy to address the above listed deficits and return to prior level of function. Home exercise program instructed and written handout provided, exercises tolerated well with no adverse effects to note post-session. Patient was educated on importance of adherence to home exercise program. Patient was also educated on anatomy, prognosis, home modalities, and plan of care. Plan of Care Interventions Electrical Stimulation,Gait Training,Hot Pack/Cold Pack,Manual Therapy,Neuro Re-education, Therapeutic Activities,Therapeutic Exercise, Ultrasound,Other PT Services Indicated Yes Treatment Frequency and 2x week 8 visits Duration These treatments will address the objective and functional deficits as defined above. The patient will be advanced safely and appropriately in order for the patient to progress towards his/her prior level of function. Additional exercises will be introduced and as well as a comprehensive home exercise program upon discharge, if needed, ?to ensure carryover of functional gains achieved in the clinic. This treatment plan has been reviewed and agreement upon by the patient.
--- NOTE | 2025-05-02 09:03 | PCPTNOTE ---
Patient called to cancel 05/02/2025 due to medical issues.
--- NOTE | 2025-05-04 11:30 | PCPTNOTE ---
Pt called and canceled stating he has bronchitis
--- NOTE | 2025-06-01 10:07 | PTOPDC ---
Assessment and note entered by Chay Hazel, PT Evaluation Information Assessment Status Discharge - Pt Not Present ICD-10 Condition Codes (PT) Pain in right hip M25.551,Pain in left hip M25.552 Other ICD-10 Condition Codes ( L40.50, Z79.899. M15.0, M76.30 PT) Onset Aug 2024 Subjective Information Pt requested discharge from physical therapy at this time. Assessment PT Clinical Summary Pt to be discharged upon request. A majority of treatments were performed but no formal re- evaluation / discharge. Plan of Care PT Services Indicated No
== END 2025-06-01 10:54 | disposition home or self-care (01) ==
LOC: ANHGOSHPT 08:45
DX: L40.50 Arthropathic psoriasis, unspecified (principal); M15.0 Primary generalized (osteo)arthritis; M76.30 Iliotibial band syndrome, unspecified leg; Z79.899 Other long term (current) drug therapy
CPT/HCPCS: 97110; 97140; 97161; 97530

== ENCOUNTER 2025-05-02 05:59 | Emergency (ER) | payer MEDICARE, SELFPAY ==
[2025-05-02] VITALS (11 sets, daily range): BP systolic 121–157; BP diastolic 73–93; PULSE 79–89; RESP 15–20; TEMP 36.8; O2SAT 92–95
--- NOTE | ~2025-05-02 | XR_ITS ---
Examination: XR chest 1V portable Clinical History: Chest pain ACROSS CHEST Comparison: 01/10/2025 Technique: Portable AP Findings: Heart size normal. Lungs clear. No acute bony abnormality. IMPRESSION: 1. No acute cardiopulmonary findings given portable technique. Reviewed, dictated and finalized at location R.
--- NOTE | 2025-05-02 06:09 | ECG_ITS ---
Test Date: 2025-05-02 06:07:30 Measurements Intervals [place] Rate: 86 P: 6 ND: 206 QRS: 57 QRSD: 160 T: 5 QT: 399 QTc: 478 Interpretive Statements SINUS RHYTHM POSSIBLE LEFT ATRIAL ENLARGEMENT RIGHT BUNDLE BRANCH BLOCK BASELINE ARTIFACT- I, II, III, AVR ABNORMAL ECG Compared to ECG 01/14/2025 10:05:12 HEART RATE HAS DECREASED RIGHT BUNDLE BRANCH BLOCK NOW PRESENT Electronically Signed On 05-02-2025 06:25:00 CDT by Adan Mcdermott D.O.
[2025-05-02 06:17] LABS: Hematocrit 43.6 % (42.0-52.0); Hemoglobin 14.6 g/dL (14.0-18.0); Immature Granulocyte Percent A 0.3 % (0-0.5); Lymphocytes Absolute Auto 0.57 K/mm3 (0.9-3.2); Mean Corpuscular HGB Conc 33.5 g/dl (32-36); Mean Corpuscular Hemoglobin 31.9 pg (26-34); Mean Corpuscular Volume 95.2 fl (80-100); Nucleated Red Blood Cells Absolute Auto 0.000 K/mm3 (0.0-0.012); Nucleated Red Blood Cells Perc 0.0 % (0.0-0.2); Platelet Count Result 172 k/mm3 (150-375); Red Blood Count 4.58 M/mm3 (4.6-6.20); White Blood Count 9.4 K/mm3 (4.5-10.0)
[2025-05-02 06:30] LABS: Alanine Aminotransferase 34 U/L (6-50); Albumin Level 4.1 g/dL (3.5-5.1); Alkaline Phosphatase 78 U/L (38-126); Anion Gap 7 mmol/L (4-12); Aspartate Amino Transferase 42 U/L (17-59); Bilirubin,Total 0.7 mg/dL (0.2-1.3); Blood Urea Nitrogen 17 mg/dL (9-20); Calcium 9.1 mg/dL (8.4-10.2); Carbon Dioxide 24 mmol/L (22-30); Chloride 100 mmol/L (98-107); Estimated CRCL calculation 94 ml/min; Estimated Glomerular Filt Rate > 60; Glucose 116 mg/dL (65-110); Lipase 60 U/L (23-300); Potassium 3.9 mmol/L (3.4-5.0); Sodium 131 mmol/L (137-145); Total Protein 7.4 g/dL (6.3-8.2)
[2025-05-02 06:40] LABS: Troponin I < 0.012 ng/mL (0.000-0.034)
[2025-05-02 06:53] LABS: INR 1.2; Partial Thromboplastin Time 29.9 Seconds (22.3-36.8); Prothrombin Time 15.0 Seconds (11.1-14.7)
--- OUTSIDE RECORDS SUMMARY | 2025-05-02 07:21 | XMS_ITS | Clinical Summary ---
Author Organization [facility] Address [address] [place] [address] Care Team Providers Care Storyboard Artist Name Role Phone Lito Hinojosa MD Primary Care Provider [phone] Source Comments [facility],non-owned Affiliates and Associated Physician Practices is amultiple site organization consisting of ambulatory clinics and hospital sitesin [place], [place], [place] and [place]. This disclosure is being madepursuant to the Care Everywhere program and may not contain all information available regarding this patient. 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
--- OUTSIDE RECORDS SUMMARY | 2025-05-02 07:21 | XMS_ITS | Encounter Summary ---
Author Organization [facility] Address [address] [place] [phone] Phone Care Team Providers Care Banner Painter Name Role Phone Leonel Burnham MD Primary Care Provider [phone] Abner Beck MD Unavailable [phone] Liana Salas MD Unavailable [phone] No, Physician Primary Care Provider [phone] Boris Todd MD Primary Care Provider + Encounter Details Date Type Department Care Team (Late st Contact Info) Description 03/12/[address] [address] [place] [address] [facility] [address] [place] [address] Social History Tobacco Use Types [...] on file 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 Answer Date of Assessment Author 4 or more times a week 03/12/2023 1:42 PM CDT Samantha jha, Generic Provider * Q2: How many drinks containing alcohol do you have on a typical day when you are drinking? Answer Date of Assessment Author 1 or 2 03/12/2023 1:42 PM CDT Sarabjit Arreola Provider * Q3: How often do you have six or more drinks on one occasion? 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 [place] [address] [place] [address] Loretta Urbina MD [address] [address] RENAL DENERVATION, BILATERAL documented as of this encounter Visit Diagnoses Not on filedocumented in this encounter Care Teams Banner Painter Relationship Specialty Start Date End Date Leonel Burnham MD PCP - General 08/27/16 09/09/24 No, Physician PCP - General 10/04/24 02/05/25 Boris Todd MD [address] [place] [address] [address] [place] [address] PCP - General Internal Medicine 02/06/25 Abner Beck MD [address] [facility] [address] [place] [address] Consulting Physician Cardiology 03/04/18 Liana Salas MD [address] [facility] [address] [place], [place] [id number] Referring Physician Rheumatology 02/03/19 documented as of this encounter
--- OUTSIDE RECORDS SUMMARY | 2025-05-02 07:21 | XMS_ITS | Clinical Summary ---
Author Organization [facility] Address [address] [place] [address] Care Team Providers Care University Lecturer Name Role Phone Abner Beck MD Unavailable [phone] Liana Salas MD Unavailable [phone] Boris Todd MD Primary Care Provider + Allergies Active Allergy Reactions Criticality Noted Date Comments Lisinopril Swelling Medium 01/05/2013 Medications aspirin 81 mg tablet Take 1 tablet (81 mg total) by mouth daily Active cloNIDine (CATAPRES) 0.3 mg tablet Take 1 tablet (0.3 mg total) by mouth 3 (three) times a day 270 tablet 2 09/27/19 25 Active spironolactone (ALDACTONE) [...] daily 90 tablet 2 09/27/19 25 Active hydroCHLOROthia zide (HYDRODIURIL) 50 mg tablet Take 1 tablet (50 mg total) by mouth daily 90 tablet 3 10/05/19 25 026 Active hydrALAZINE (APRESOLINE) 100 mg tabletIndicatio ns:hypertension Take 1 tablet (100 mg total) by mouth daily 90 tablet 3 10/05/19 25 026 Active sildenafiL (VIAGRA) 100 mg tablet Take 1 tablet (100 mg total) by mouth as needed for erectile dysfunction 90 tablet 3 10/12/19 25 Active metoprolol XL (TOPROL-XL) 50 mg extended release tablet Take 1 tablet (50 mg total) by mouth 2 (two) times a day 180 tablet 2 01/16/20 25 Active dronedarone (Multaq) 400 mg tablet Take 1 tablet (400 mg total) by mouth 2 (two) times a day with meals 180 tablet 3 01/19/20 25 Active LORazepam (ATIVAN) 0.5 mg tablet Take 1 tablet (0.5 mg total) by mouth as needed for anxiety 30 tablet 02/03/20 25 Active buPROPion XL (WELLBUTRIN XL) 150 mg 24 hr tablet TAKE 3 TABLETS EVERY MORNING 270 tablet 3 02/21/20 25 Active apixaban (Eliquis) 5 mg tabletIndicatio ns:Paroxysmal atrial fibrillation (HCC) Take 1 tablet (5 mg total) by mouth 2 (two) times a day 200 tablet 3 03/17/20 25 Active tirzepatide, weight loss, (Zepbound) 10 mg/0.5 mL solution vialIndications :Class 1 obesity due to excess calories with serious comorbidity and body mass index (BMI) of 33.0 to 33.9 in adult,Moderate obstructive sleep apnea Inject 0.5 mL (10 mg total) under the skin every 7 days 6 mL 1 03/17/20 25 Active tirzepatide, weight loss, (Zepbound) 12.5 mg/0.5 mL pen injector Inject 0.5 mL (12.5 mg total) under the skin once a week 2 mL 1 04/04/20 25 Active leflunomide (ARAVA) 10 mg tabletIndicatio ns:Psoriatic arthritis (HCC) TAKE 1 TABLET DAILY 90 tablet 1 04/05/20 25 Active hydrALAZINE (APRESOLINE) 25 mg tablet Take 3 tablets (75 mg total) by mouth 2 (two) times a day 180 tablet 11 04/17/20 25 026 Active nitroglycerin (NITROSTAT) 0.4 mg SL tablet DISSOLVE 1 TABLET UNDER THE TONGUE EVERY 5 MINUTES NEEDED FOR CHEST PAIN, AFTER THIRD DOSE CALL 911 25 tablet 3 04/28/20 25 Active hydrALAZINE (APRESOLINE) 25 mg tablet Take 3 tablets (75 mg total) by mouth 2 (two) times a day 180 tablet 11 10/22/19 25 025 Discontinued leflunomide (ARAVA) 10 mg tabletIndicatio ns:Psoriatic arthritis (HCC) TAKE 1 TABLET DAILY 90 tablet 01/06/20 25 025 Discontinued nitroglycerin (NITROSTAT) 0.[address] 1 tablet (0.4 mg total) under the tongue every 5 (five) minutes as needed for chest pain After third dose call 911 28 tablet 3 01/19/20 25 025 Discontinued tirzepatide (MOUNJARO) 12.5 mg/0.5 mL pen injector injection Inject 0.5 mL (12.5 mg total) under the skin once a week 2 mL 2 04/04/20 25 025 Discontinued hydrALAZINE (APRESOLINE) 25 mg tablet Take 3 tablets (75 mg total) by mouth 2 (two) times a day 180 tablet 11 04/17/20 25 025 Discontinued Active Problems Problem Noted Date Diagnosed Date History of prostate cancer 03/17/2025 History of ND (myocardial infarction) 06/17/2024 Paroxysmal atrial fibrillation 09/17/2023 Overview (09/17/2023): Images from the original note were not included. Assessment & Plan (03/17/2025 1:54 PM CDT): 1. Chronic, stable 2. He will continue metoprolol and Eliquis Assessment & Plan (03/30/2024 4:45 PM CDT): No obvious symptoms symptoms , stable on meds plans for Cardiology follow-up. Assessment & Plan (09/17/2023 10:20 AM ELECTRO MECHANICAL ENGINEER): Newly noted afib rvr w/ exam, EKG confirmed- detailed above Remains asymptomatic, heart rate modestly stable in 120s Exam benign otherwise w/ decom sx, etiology to explain Will update CMP, TFT to rule out possible etiologies Arrange for routine TTE, possible event monitor (?), discuss anti arrhythmics or conversion procedures for this at behest of special warfare boat operator - will update today to f/u w/ [...] in the week or interim prn Class 1 obesity due to exces s calories with serious comorbidity and body mass index (BMI) of 33.0 to 33.9 in adult 03/12/2022 Assessment & Plan (03/30/2024 4:45 PM CDT): Working on diet and exercise. Given prediabetes hypertension cardiac issues he is candidate for GLP 1 medications. He will attempt to get this filled Assessment & Plan (03/12/2022 8:55 AM CDT): He is working on calorie restriction and exercise. Adenomatous polyps 01/15/2022 Overview (01/15/2022): Added automatically from request for surgery [id number] Paresthesia 02/08/2021 Assessment & Plan (02/08/2021 10:10 AM CDT): Likely mild neuropathy will check labs. No other new complaints. Hallux rigidus of both feet 12/02/2020 Altered glucose metabolism 02/03/2019 Assessment & Plan (03/30/2024 8:02 AM CDT): Checking A1c now. Assessment & Plan (09/17/2023 8:30 AM ELECTRO MECHANICAL ENGINEER): Impaired Fasting Glucose is modestly stable A1c [...] 9:47 AM CDT): Checking hba1c current regimen Coronary artery disease invo lving umatilla tribe coronary artery of um[place] tribe heart without angina pectoris 10/20/2017 Overview (01/07/2018): Two stents in lad 09/2017 Assessment & Plan (09/17/2023 8:34 AM ELECTRO MECHANICAL ENGINEER): No reported angina or decompensation concerns amongst [...] pain , palpitations, sob or other complaints. Resistant hypertension 09/01/2017 Assessment & Plan (03/17/2025 1:55 PM CDT): 1. Chronic, poorly controlled 2. Will message his special warfare boat operator to see if he would be a candidate for renal denervation 3. He will continue amlodipine, clonidine, hydralazine, hydrochlorothiazide, metoprolol, and spironolactone Assessment & Plan (06/17/2024 8:11 AM ELECTRO MECHANICAL ENGINEER): 1. Chronic, well controlled 2. Will continue amlodipine, clonidine, hydralazine, hydrochlorothiazide, and spironolactone Assessment & Plan (03/30/2024 8:02 AM CDT): Well controlled on current regimen. Assessment & Plan (09/17/2023 8:36 AM ELECTRO MECHANICAL ENGINEER): Above baseline today though Hx of white coat HTN & remains normotensive, asymptomatic at home Cnt current antihypertensive regimen, increasing exercise as tolerated the will maintain closer BP monitoring given newly noted arrhythmia to update with any trending BP's RTC 6 mos Assessment & Plan (06/09/2023 1:05 PM ELECTRO MECHANICAL ENGINEER): 1. Chronic, elevated in clinic but well [...] weakness. Assessment & Plan (09/17/2023 8:29 AM ELECTRO MECHANICAL ENGINEER): NO obvious sx or side effects from [...] Care Assessment & Plan (06/17/2024 8:11 AM ELECTRO MECHANICAL ENGINEER): 1. Chronic, well controlled 2. However his machine is nearing the end of life 3. Will place order to get him a new machine 4. Will continue current pressure and Assessment & Plan (03/30/2024 8:03 AM CDT): Well controlled on cpap. Assessment & Plan (09/17/2023 8:29 AM ELECTRO MECHANICAL ENGINEER): Asymptomatic on current CPAP settings-Cnt as prior Followed by sleep medicine Assessment & Plan (03/18/2023 8:20 AM CDT): Well treated with cpap and getting at home sleep study . Assessment & Plan (03/14/2022 8:07 AM CDT): 1. Chronic, well controlled 2. However patient is having some leak from his mask 3. After showing him different masks, decided on the KuGouwisp mask, will send to his [employer] 4. Will also get attached to his [...] normal Rheumatoid arthritis 11/09/2010 Assessment & Plan (03/17/2025 1:56 PM CDT): 1. Chronic, well controlled 2. Patient will continue leflunomide and follow up with Rheumatology Assessment & Plan (03/30/2024 8:01 AM CDT): [...] 11/11/2007 Assessment & Plan (05/17/2024 2:22 PM ELECTRO MECHANICAL ENGINEER): Remains in remission on current regimen. No [...] walks. He will make own appt through [facility] or call office for assistance. Assessment & Plan (02/09/2020 9:46 AM CDT): Doing fine and he is enjoying long term despite pandemic Assessment & Plan (02/03/2019 9:41 AM CDT): Doing fine on current regimen . No complications Assessment & Plan (08/10/2018 3:14 PM ELECTRO MECHANICAL ENGINEER): Remains stable on current regimen. Mood and anxiety symptoms are under control so no indication for changes today. He provides informed consent to continue with regimen of 450mg Wellbutrin with very rare Ativan. Discussed transition to long term and he has a good plan. Return [...] be reassessed at the next regular appointment. Resolved Problems Problem Noted Date Diagnosed Date Resolved Date Arrhythmia 09/17/2023 09/17/2023 Medicare annual wellness visit, subsequent 01/07/2018 03/17/2025 Assessment & Plan (03/30/2024 8:01 AM CDT): [...] reviewed and updated . No new concerns. Malignant neoplasm of prostate 05/26/2007 03/17/2025 Assessment & Plan (03/30/2024 8:02 AM CDT): Checking psa now. Assessment & Plan (09/17/2023 8:31 AM ELECTRO MECHANICAL ENGINEER): Remains near undetectable with annual active surveillance [...] No signs of recurrence and checking psa Encounters Date Type Department Care Team Description 04/25/2025 Orders Only [facility] Cardiology [facility] 8th [place] [address] [place] [address] Loretta Urbina MD Coronary artery disease involving umatilla tribe coronary artery of umatilla tribe heart without angina pectoris (Primary Dx); Resistant hypertension 04/25/2025 Orders Only [facility] Cardiology [facility] 8th [place] [address] [place] [address] Loretta Urbina MD Resistant hypertension (Primary Dx) 04/21/2025 Orders Only [facility] Cardiology [address] [place] [address] 8th [place] [address] [place] [address] Loretta Urbina MD 04/11/2025 Telephone [facility] Cardiology [address] [facility] [address] [place] [address] Loretta Urbina MD 04/05/2025 1:00 PM CDT Office Visit [facility] Rheumatology [address] [place] [address] 5th [place] [address] [place] [address] Liana Salas MD Psoriatic arthritis (HCC) (Primary Dx); Encounter for long-term (current) use of high-risk medication; Iliotibial band syndrome, unspecified laterality; Primary osteoarthritis involving multiple joints; Paresthesias 04/03/2025 10:00 AM CDT Lab [facility] [address] [address] [place] [address] 04/03/2025 9:15 AM CDT Office Visit [facility] Cardiology [address] [facility] Office [address] [place] [address] Loretta Urbina MD Resistant hypertension (Primary Dx) 04/03/2025 Telephone [facility] Cardiology [address] [facility] Office [address] [place] [address] Loretta Urbina MD 03/29/2025 Telephone [facility] Cardiology [address] [facility] 8th [place] [address] [place] [address] Abner Beck MD New Referral 03/21/2025 Telephone [facility] Cardiology [address] [facility] Office Building [address] [place] [address] Abner Beck MD 03/17/2025 8:33 AM CDT - 03/17/2025 11:59 PM CDT Hospital Encounter [address] [address] Discharge Disposition: Discharge to home or self care 03/17/2025 7:45 AM CDT Office Visit [facility] at the [address] [phone] Boris Todd MD Medicare annual wellness visit, subsequent (Primary Dx); Paroxysmal atrial fibrillation (HCC); Class 1 obesity due to excess calories with serious comorbidity and body mass index (BMI) of 33.0 to 33.9 in adult; Moderate obstructive sleep apnea; Resistant hypertension; Rheumatoid arthritis involving multiple sites with positive rheumatoid factor (HCC); History of prostate cancer; Coronary artery disease involving umatilla tribe coronary artery of umatilla tribe heart without angina pectoris; Left ear impacted cerumen 03/17/2025 Results Follow-Up [facility] at the [address] [phone] Boris Todd MD PSA screen, Lipid panel, Hemoglobin A1c 03/17/2025 Orders Only [facility] at the [address] [phone] Boris Todd MD History of prostate cancer; Coronary artery disease involving umatilla tribe coronary artery of umatilla tribe heart without angina pectoris; Medicare annual wellness visit, subsequent from Last 3 Months Immunizations Immunization Administration [...] Wrist Surgery - (Added by TW Conv) MT PROSTECT RETROPUB RAD W/W O NRV SPAR & BI PLV LYM Prostatect Retropubic Radical W/ Bilat Pelv Lymphadenectomy - 09/2004 (Added by TW Conv) MT COLONOSCOPY FLX DX W/MARIAN J SPEC WHEN PFRMD Complete Colonoscopy - (Added by TW Conv) CARDIAC STENT PLACEMENT x2 PROSTATE SURGERY 2004 Medical History Medical History Date Comments Personal history of arthritis Ar thritis - (Added by TW Conv) Major depressive disorder, recurrent, moderate (HCC) Moderate recurrent major dep ression [...] 2004 Heart disease 2009? Sleep apnea 2009? Malignant neoplasm of prostate (HCC) 05/26/2007 Family History Medical History Relation Name Comments [...] points, staff should administer the PHQ-9) 0 03/17/2025 Sex and Gender Information Value Date Recorded Sex Assigned at Not on file Legal Sex Male 8:49 PM ELECTRO MECHANICAL ENGINEER Gender Identity Male 05/06/2019 2:56 PM CDT Sexual Orientation Straight 05/06/2019 2: 56 PM CDT Obstetrics History Last Filed Vital Signs Vital Sign Reading Time Taken Comments Blood Pressure 142/75 04/05/2025 12:55 PM CDT Pulse 73 04/05/2025 12:55 PM CDT Temperature 36.7 C (98.1 F) 04/05/2025 12:55 PM CDT Respiratory Rate 20 03/30/2024 7:47 AM CDT Oxygen Saturation 98% 04/03/2025 9:03 AM CDT Inhaled Oxygen Concentration - - Weight 112.5 kg (248 lb) 04/05/2025 12:55 PM CDT Height 185.4 cm (6' 1) 04/05/2025 12:55 PM CDT Body Mass Index 32.72 04/05/2025 12:55 PM CDT Plan of Treatment Upcoming Encounters Date Type Department Care Team (Latest Contact Info) Description 06/06/2025 8:00 AM ELECTRO MECHANICAL ENGINEER Hospital Encounter [facility] [address] [place] [address] Loretta Urbina MD [address] [place] [address] Resistant hypertension 06/06/2025 8:00 AM ELECTRO MECHANICAL ENGINEER - 06/06/2025 9:54 AM ELECTRO MECHANICAL ENGINEER Surgery [facility] [address] [place] [address] Loretta Urbina MD [address] [place] [address] RENAL DENERVATION, BILATERAL Health Maintenance Due Date Last Done Comments Hepatitis B Screening 1973 Covid-19 Vaccine (2024-2 6 season) 2025 03/04/2021, 09/15/2020, 08/18/2020 Influenza Vaccine (#1) 2025 , 04/20/2021, 05/07/2020, Additional history exists Depression Screening 03/17/2026 03/17/2025, 03/30/2024, 03/18/2023, Additional history exists Fall Risk Assessment 03/17/2026 03/17/2025, 03/30/2024, 03/18/2023, Additional history exists Well Visit 65+ 03/17/2026 03/17/2025, 03/13, 03/18/2023, Additional history exists Colon Cancer Screening-Colonoscopy 01/20/2027 01/20/2022, 10/27/2018, 06/09/2013 Prostate Cancer Screening-PSA 03/17/2027, 05/26/2024, 03/18/2023, Additional history exists DTaP/Tdap/Td Vaccine (2 - Td or Tdap) 02/03/2029 02/03/2019, 05/08/2008 Hepatitis C Screening Completed 01/07/2018 Zoster Vaccine Completed 05/24/2018, 02/24/2018 Abdominal Aortic Aneurysm (A AA) Screen Completed 03/06/2021 Colon Cancer Screening-CT Colonography Discontinued 01/20/2022, 10/27/2018, 06/09/2013 Colon Cancer Screening-DNA Stool Discontinued 01/20/2022, 10/27/2018, 06/09/2013 Colon Cancer Screening-FIT Discontinued 01/20, 10/27/2018, 06/09/2013 Colon Cancer Screening-Sigmoidoscopy Discontinued 01/20/2022, 10/27/2018, 06/09/2013 Pneumococcal vaccine 65+ Completed 03/12/2022, 01/12 Medical Devices Implanted Type Area Interior Specialist Device Identifier Shelf Expiration Date Model / Serial / Lot Other - See Comments-2018 Implanted:08/2018 (Quantity not on file) Other - see comments Coronary Procedures Procedure Name Priority Date/Time Associated Diagnosis Comments RENIN ACTIVITY Routine 04/03/2025 10:55 AM CDT ALDOSTERONE Routine 04/03/2025 10:35 AM CDT HEMOGLOBIN A1C Routine 03/17/2025 8:32 AM CDT Medicare annual wellness visit, subsequent LIPID PANEL Routine 03/17/2025 8:32 AM CDT Coronary artery disease involving umatilla tribe coronary artery of umatilla tribe heart without angina pectoris PSA SCREEN Routine 03/17/2025 8:32 AM CDT History of prostate cancer MT REMOVAL IMPACTED CERUMEN INSTRUMENTATION UNILAT Routine 03/17/2025 7:45 AM CDT Left ear impacted cerumen COMPREHENSIVE METABOLIC PANEL Routine 03/15/2025 7:10 AM CDT Psoriatic arthritis (HCC) Encounter for long-term (current) use of high-risk medication CBC WITH AUTO DIFFERENTIAL Routine 03/15/2025 7:10 AM CDT Psoriatic arthritis (HCC) Encounter for long-term (current) use of high-risk medication COLONOSCOPY 01/20/2022 8:15 AM CDT US ABDOMINAL AORTIC ANEURYSM SCREENING Schedule Routine, Read Routine (OP Routine) 03/06/2021 8:43 AM CDT Screening for AAA (aortic abdominal aneurysm) HEPATITIS C ANTIBODY Routine 01/07/2018 2:20 PM CDT Routine physical examination from Last 3 Months or Most Recently Relevant to Health Maintenance Results * Renin activity (04/03/2025 10:55 AM CDT) Renin 15 ng/mL/H [facility] ref Lab Comment: REFERENCE VALUE (Peripheral vein specimen) Na-deplete, upright: Mean: 5.9 Range: 2.9-10.8 Na-replete, upright: Mean: 1.0 Range: < or =0.6-3.0 ADDITIONAL INFORMATION Testing performed by Liquid Chromatography-Tandem Mass Spectrometry (LC-MS/MS). This test was developed and its performance characteristics determined by [facility] in a manner consistent with CLIA requirements. This test has not been cleared or approved by the U.S. Food and Drug Administration. Test Performed by: [facility] [place] [address] Pluck Trimmer: Obdulio Winchester Ph.D.; CLIA# [id number] Blood 04/03/2025 10:5 5 AM CDT 04/03/2025 11:03 AM CDT us Kelli Goodman MD LAB BLOOD ORDERABLES Final Res ult [id number] [facility] [address] [facility] * Aldosterone (04/03/2025 10:35 AM CDT) Aldosterone 12 <=21 ng/dL [facility] Comment: ADDITIONAL INFORMATION Reference range for patients 11 years and older is based on upright A.M. collection from subjects without sodium restrictions. This test was developed and its performance characteristics determined by [facility] in a manner consistent with CLIA requirements. This test has not been cleared or approved by the U.S. Food and Drug Administration. Test Performed by: [facility] [address] [place] [address] Pluck Trimmer: Obdulio Winchester Ph.D.; CLIA# [id number] Blood 04/03/2025 10:3 5 AM CDT 04/03/2025 11:01 AM CDT Kelli Goodman MD LAB BLOOD ORDERABLES Final Res ult Performing Organization Address [facility] Co de Phone Number [facility] RO[facility] [address] [facility] [address] [facility] * PSA screen (03/17/2025 8:32 AM CDT) PSA-Total <0.02 <=5.40 ng/mL Comment: Interpretive Data AGE SEX REFERENCE INTERVAL 0 minutes-150 years Female None 0 minutes-49 years Male None 50-59 years Male 0-3.90 60-69 years Male 0-5.40 70-79 years Male 0-6.20 80-150 years Male 0-6.20 The Laurita PSA Total assay procedure was used. Results from different manufacturers or methods may not be comparable. Serial testing should be performed using the same method. Current interpretive data last revised 21. Blood 03/17/2025 8:32 AM CDT 03/17/2025 12:42 PM CDT Boris Todd MD LAB BLOOD ORDERABLES Fin al Result Performing Organization Address City/[facility]/ZIP Co de Phone Number TAYLOR ROQUEH [facility] Department [place] [address] * Hemoglobin A1c (03/17/2025 8:32 AM CDT) Hgb A1C 5.4 4.0 - 5.6 % Estimated Average Glucose 108 mg/dL [facility] Comment: The ADA recommends reporting an estimated Average Glucose (eAG) with all Hemoglobin A1c results using the equation derived from a study of 507 normal and diabetic adults. Minority populations were underrepresented and children were not included. (Diabetes Care 2020; 43(S1): S66-S76). The eAG is not equivalent to a fasting glucose. Blood 03/17/2025 8:32 AM CDT 03/17/2025 12:42 PM CDT us Boris Todd MD LAB BLOOD ORDERABLES Fin al Result [facility] Department [place] [address] * Lipid panel (03/17/2025 8:32 AM CDT) Cholesterol 108 30 - 199 mg/dL Comment: Interpretive Data Ages < or = 19 years Acceptable: <170 mg/dL Borderline high: 170-199 mg/dL High: >or= 200 mg/dL Ages > or = 20 years Desirable: <200 mg/dL Borderline high: 200-239 mg/dL High: >or= 240 mg/dL Literature References: 1. Expert Panel on Integrated Guidelines for Cardiovascular Health and Risk Reduction in Children and Adolescents. Pediatrics 2011;128:S213 2. NCEP Expert Panel. Circulation 2004;110:227 Current Interpretive Data was last revised on 2018. Triglycerides 62 <=149 mg/dL [facility] Comment: Interpretive Data Ages < or = 9 years Acceptable: <75 mg/dL Borderline high: 75-99 mg/dL High: >or= 100 mg/dL Ages 10 to 20 years Acceptable: <90 mg/dL Borderline high: 90-129 mg/dL High: >or= 130 mg/dL Ages > or = 20 years Desirable: <150 mg/dL Borderline high: 150-199 mg/dL High: 200-499 mg/dL Very high: >or= 499 mg/dL Literature References: 1. Expert Panel on Integrated Guidelines for Cardiovascular Health and Risk Reduction in Children and Adolescents. Pediatrics 2011;128:S213 2. NCEP Expert Panel. Circulation 2004;110:227 Current Interpretive Data was last revised on 2018. HDL 46 >=40 mg/dL [facility] Comment: Interpretive Data Ages < or = 19 years Acceptable: >45 mg/dL Borderline low: 40-45 mg/dL Low: <40 mg/dL Ages > or = 20 years Desirable: >or= 60 mg/dL Low: <40 mg/dL Literature References: 1. Expert Panel on Integrated Guidelines for Cardiovascular Health and Risk Reduction in Children and Adolescents. Pediatrics 2011;128:S213 2. NCEP Expert Panel. Circulation 2004;110:227 Current Interpretive Data was last revised on 2018. LDL, calculated 48 <=129 mg/dL [facility] Comment: Interpretive Data Ages < or = 19 years Acceptable: <110 mg/dL Borderline high: 110-129 mg/dL High: >or= 130 mg/dL Ages > or = 20 years Optimal: <100 mg/dL Near optimal: 100-129 mg/dL Borderline high: 130-159 mg/dL High: >160 mg/dL Calculated using the Catalino LDL-C estimating equation. This equation was implemented on 2024. Prior to this date LDL-C was estimated using the Friedewald equation. Literature References: 1. Expert Panel on Integrated Guidelines for Cardiovascular Health and Risk Reduction in Children and Adolescents. Pediatrics 2011;128:S213 2. NCEP Expert Panel. Circulation 2004;110:227 3. Catalino Hager al. CORWIN Cardiol. 2020 November 10;5(5):540-548. doi: 10.1001/[email or web address].2020.0013 Current Interpretive Data was last revised on 2024. Non-HDL Cholesterol 62 mg/dL [facility] Comment: Interpretive Data Ages < or = 19 years Acceptable: <120 mg/dL Borderline high: 120-144 mg/dL High: >145 mg/dL Ages > or = 20 years When triglycerides are >200 mg/dL, Non-HDL cholesterol is a secondary target of therapy with treatment goals that are 30 mg/dL greater than the LDL cholesterol target. Literature References: 1. Expert Panel on Integrated Guidelines for Cardiovascular Health and Risk Reduction in Children and Adolescents. Pediatrics 2011;128:S213 2. NCEP Expert Panel. Circulation 2004;110:227 Current Interpretive Data was last revised on 2018. Chol/HDL ratio 2 [facility] Blood 03/17/2025 8:32 AM CDT 03/17/2025 12:42 PM CDT Boris Todd MD LAB BLOOD ORDERABLES Fin al Result [facility] Department [place] [address] * MT REMOVAL IMPACTED CERUMEN INSTRUMENTATION UNILAT (03/17/2025 7:45 AM CDT) Narrative Boris Todd MD - 03/17/2025 7:45 AM CDT Boris Todd MD 03/17/2025 2:01 PM Ear Cerumen Removal Performed by: Boris Todd MD Authorized by: Boris Todd MD Consent Given by: Patient Verbal consent obtained: Yes Risks, alternatives, and patient questions discussed: Yes Location: L ear L ear cerumen impacted?: Yes L ear method of removal: Instrumentation and magnification L ear instrumentation: Curette L ear magnification: Otoscope Inspection: TM intact Hearing quality: Normal Patient tolerance: Patient tolerated the procedure well with no immediate complications Boris Todd MD IN CLINIC/BEDSIDE ORDERA BLES Final Result * (ABNORMAL) CBC with auto differential (03/15/2025 7:10 AM CDT) WBC 4.1 3.8 - 10.8 Thousand/u L [facility] RBC, POC 4.19(L) 4.20 - 5.80 Million/uL [facility] Hgb 13.6 13.2 - 17.1 g/dL [facility] Hct 42.2 38.5 - 50.0 % [facility] MCV 100.7(H) 80.0 - 100.0 fL [facility] MCH 32.5 27.0 - 33.0 pg [facility] MCHC 32.2 32.0 - 36.0 g/dL [facility] Comment: For adults, a slight decrease in the calculated MCHC value (in the range of 30 to 32 g/dL) is most likely not clinically significant; however, it should be interpreted with caution in correlation with other red cell parameters and the patient's clinical condition. Rdw 12.4 11.0 - 15.0 % [facility] Platelets 179 140 - 400 Thousand/u L [facility] MPV 10.8 7.5 - 12.5 fL [facility] Neutrophils, abs 2,399 1,500 - 7,800 cells/uL [facility] Lymphocytes, abs 853 850 - 3,900 cells/uL [facility] Monocyte abs 574 200 - 950 cells/uL [facility] Eosinophils, abs 246 15 - 500 cells/uL [facility] Basophils, abs 29 0 - 200 cells/uL [facility] Neutrophils 58.5 % [facility] Lymphocyte pct 20.8 % [facility] Monocytes 14.0 % [facility] Eosinophils 6.0 % [facility] Basophils 0.7 % [facility] Blood 03/15/2025 7:10 AM CDT 03/15/2025 7:10 AM CDT Narrative [facility] - 03/15/2025 4:08 PM CDT FASTING:YES FASTING: YES us Liana Salas MD LAB BLOOD ORDERABLES Final Result [facility] [address] [place] [address] * (ABNORMAL) Comprehensive metabolic panel (03/15/2025 7:10 AM CDT) [facility] Glucose 106(H) 65 - 99 mg/dL [facility] Comment: Fasting reference interval For someone without known diabetes, a glucose value between 100 and 125 mg/dL is consistent with prediabetes and should be confirmed with a follow-up test. BUN 18 7 - 25 mg/dL [facility] Creatinine 0.98 0.70 - 1.35 mg/dL [facility] eGFR 83 > OR = 60 mL/min/1.7 3m2 [facility] BUN/creat ratio SEE NOTE: 6 - 22 (calc) [facility] Comment: Not Reported: BUN and Creatinine are within reference range. Sodium 135 135 - 146 mmol/L [facility] Potassium, pl 4.3 3.5 - 5.3 mmol/L [facility] Chloride 102 98 - 110 mmol/L [facility] CO2 26 20 - 32 mmol/L [facility] Calcium 9.1 8.6 - 10.3 mg/dL [facility] Protein, sr 6.3 6.1 - 8.1 g/dL [facility] Albumin 4.0 3.6 - 5.1 g/dL [facility] GLOBULIN 2.3 1.9 - 3.7 g/dL (calc) [facility] Alb/glob ratio 1.7 1.0 - 2.5 (calc) [facility] Bilirubin, total 0.5 0.2 - 1.2 mg/dL [facility] Alk phos 67 35 - 144 U/L [facility] AST 28 10 - 35 U/L [facility] ALT (SGPT) 22 9 - 46 U/L [facility] Blood 03/15/2025 7:10 AM CDT 03/15/2025 7:10 AM CDT Narrative [facility] - 03/15/2025 4:08 PM CDT FASTING:YES FASTING: YES us Liana Salas MD LAB BLOOD ORDERABLES Final Result [facility] [address] [place] [address] * COLONOSCOPY (01/20/2022 8:15 AM CDT) Anatomical Region Laterality Modality Other Narrative Procedure Note Early, Audrey Swann MD - 01/20/2022 8:15 AM CDT [facility] Patient Name: Jas Ramirez Procedure Date: 01/20/2022 8:15 AM Date of : 1955 Admit Type: Outpatient Age: 66 Gender: Male Attending MD: Audrey Mcgrath M.D. Room: [facility] ENDOSCOPY ROOM 9 Note Status: Finalized Procedure: [...] scope was passed under direct vision.The CF [id number] endoscope was introduced through the anus and advanced to the cecum, identified by appendiceal orifice and ileocecal valve. The colonoscopy was performed without difficulty. The patient tolerated the procedure well. The qualityof the bowel preparation was evaluated using the BBPS ([place] Bowel Preparation Scale) with scores of:Right Colon [...] On: 01/20/2022 8:15 AM Recognized by the [place] [employer] for promoting quality [...] it. Electronically signed by: Mark Woodard M.D. [facility] 03/06/2021 9:01 AM CDT EXAMINATION: AORTA SONOGRAM [...] by: Mark Woodard M.D. Leonel Burnham MD [facility] PROCEDURES Final Resu lt * Hepatitis C antibody (01/07/2018 2:20 PM CDT) Pathologist [facility] Hep C Ab Nonreactive Nonreactive [facility] Comment: Interpretive Data Positive and greyzone results should be confirmed by a molecular method. If positive or greyzone, a second separately collected sample should be submitted for Hepatitis C Virus RNA. Detection and Quantitation by Real-Time Reverse Press Secretary-PCR.Current Interpretive data was last revised on 2016. Blood specimen (specimen) 01/07/2018 2:20 PM CDT 01/07/2018 3:02 PM CDT [facility] - 01/08/2018 9:26 AM CDT Leonel Burnham MD LAB MICROBIOLOGY - GENERAL O RDERABLES Edited Result - Final [facility] Department [place] [address] from Last 3 Months or Most Recently Relevant to Health Maintenance Insurance MEDICARE [facility] MED[facility] Advance Directives For more information, please contact: [phone] * Full Code (Latest Code Status on File) Date Activated Date Inactivated Comments 01/20/2022 8:08 AM 01/20/2022 1:43 PM * Full Code Date Activated Date Inactivated Comments 10/27/2018 10:53 AM 10/27/2018 4:33 PM Care Teams University Lecturer Relationship Specialty Start Date End Date Boris Todd MD [address] [place] [address] [address] V[address] [facility] [address] [place] [address] PCP - General Internal Medicine 02/06/25 Abner Beck MD [address] [facility] [address] [facility] [address] [place], [place] [id number] Consulting Physician Cardiology 03/04/18 Liana Salas MD [address] [facility] [address] [facility] [address] [place] [address] Referring Physician Rheumatology 02/03/19
--- OUTSIDE RECORDS SUMMARY | 2025-05-02 07:21 | XMS_ITS | Encounter Summary ---
Author Organization [facility] Healthcare Address [address] [place] [address] Care Team Providers Care Cattle Examiner Name Role Phone Abner Beck MD Unavailable [phone] Liana Salas MD Unavailable Boris Todd MD Primary Care Provider + Encounter Details Date Type Department Care Team (Late st Contact Info) Description 03/17/2025 Results Follow-Up 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 Cholesterol and blood sugar look great. The PSA remains undetectable. Keep up the great work documented in this encounter Plan of Treatment Upcoming Encounters Date Type Department Care Team (Latest Contact Info) Description 06/06/2025 8:00 AM LAWN CARE TECHNICIAN Hospital Encounter [facility] Heart [facility] [place] [address] [place] [address] Loretta Urbina MD [address] [facility] [address] [place] [address] Resistant hypertension 06/06/2025 8:00 AM LAWN CARE TECHNICIAN - 06/06/2025 9:54 AM LAWN CARE TECHNICIAN Surgery [facility] Heart [facility] [place] [address] [place] [address] Loretta Urbina MD [address] [facility] [address] [place] [address] RENAL DENERVATION, BILATERAL documented as of this encounter Visit Diagnoses Not on filedocumented in this encounter Care Teams Cattle Examiner Relationship Specialty Start Date End Date Boris Todd MD [address] [place] [address] [address] [place] [address] PCP - General Internal Medicine 02/06/25 Abner Beck MD [address] [place] [address] Consulting Physician Cardiology 03/04/18 Liana Salas MD [address] [facility] [address] [place], [place] [id number] Referring Physician Rheumatology 02/03/19 documented as of this encounter
--- OUTSIDE RECORDS SUMMARY | 2025-05-02 07:21 | XMS_ITS | Encounter Summary ---
Author Organization [facility] Address [address] [place] [address] Phone Care Team Providers Care Diamond Setter Name Role Phone Abner Beck MD Unavailable [phone] Liana Salas MD Unavailable [phone] No, Physician Primary Care Provider [phone] Boris Todd MD Primary Care Provider + Encounter Details Date Type Department Care Team (Latest Contact Info) Description 01/11/2025 Orders Only [facility] Scanning, Provider Social History Tobacco Use Types Packs/Day Years [...] on file Legal Sex Male 8:49 PM TEXTILE EXAMINER Gender Identity Male 05/06/2019 2:56 PM CDT Sexual Orientation Straight 05/06/2019 2: 56 PM CDT documented as of this encounter Plan of Treatment Upcoming Encounters Date Type Department Care Team (Latest Contact Info) Description 06/06/2025 8:00 AM TEXTILE EXAMINER Hospital Encounter [facility] [address] [place] [address] Loretta Urbina MD [address] [place] [address] Resistant hypertension 06/06/2025 8:00 AM TEXTILE EXAMINER - 06/06/2025 9:54 AM TEXTILE EXAMINER Surgery [facility] Heart [facility] Vascular [place] [address] [place] [address] Loretta Urbina MD [address] [facility] [address] [place] [address] RENAL DENERVATION, BILATERAL documented as of this encounter Procedures Procedure Name Priority Date/Time Associated Diagnosis Comments CARDIOLOGY DOCUMENT SCAN 01/11/2025 documented in this encounter Results * Cardiology Document Scan (01/11/2025) Anatomical Region Laterality Modality Other us Provider Scanning [facility] SERVICES PROCEDURES Final Result documented in this encounter Visit Diagnoses Not on filedocumented in this encounter Care Teams Diamond Setter Relationship Specialty Start Date End Date No, Physician PCP - General 10/04/24 02/05/25 Boris Todd MD [address] [facility] [address] [place] [address] PCP - General Internal Medicine 02/06/25 Abner Beck MD [address] [facility] [address] [place] [address] Consulting Physician Cardiology 03/04/18 Liana Salas MD [address] [facility] [address] [place] [address] Referring Physician Rheumatology 02/03/19 documented as of this encounter
--- OUTSIDE RECORDS SUMMARY | 2025-05-02 07:21 | XMS_ITS | Encounter Summary ---
Author Organization [facility] Address [address] [place] [address] Phone Care Team Providers Care Technology And Engineering Teacher Name Role Phone Abner Beck MD Unavailable [phone] Liana Salas MD Unavailable [phone] Boris Todd MD Primary Care Provider + Encounter Details Date Type Department Care Team (Late st Contact Info) Description 04/11/2025 Telephone [facility] Medicine Cardiology [address] [facility] Medical Office [address] [place] [address] Loretta Urbina MD [address] [facility] [address] [place] [address] Social History Tobacco Use Types [...] on file Legal Sex Male 8:49 PM TRANSPORT ASSISTANT Gender Identity Male 05/06/2019 2:56 PM CDT Sexual Orientation Straight 05/06/2019 2: 56 PM CDT documented as of this encounter Miscellaneous Notes * Telephone Encounter - Micheal Rolle - 04/12/2025 1:17 PM CDT PT RTN CALL,PLS CALL * Telephone Encounter - Felicity Mcneal, ALEAH - 04/11/2025 1:40 PM CDT Called to speak to patient about RDN procedure schedule date. No answer, left VM to return call to [phone]. documented in this encounter Plan of Treatment Upcoming Encounters Date Type Department Care Team (Latest Contact Info) Description 06/06/2025 8:00 AM [facility] Hospital Encounter [facility] 1 [place] [address] Loretta Urbina MD [address] [address] Resistant hypertension 06/06/2025 8:00 AM TRANSPORT ASSISTANT - 06/06/2025 9:54 AM [facility] Surgery [facility] Vascular [place] 1 [place] [address] Loretta Urbina MD [address] [address] RENAL DENERVATION, BILATERAL documented as of this encounter Visit Diagnoses Not on filedocumented in this encounter Care Teams Technology And Engineering Teacher Relationship Specialty Start Date End Date Boris Todd MD [facility] [address] [place] [address] PCP - General Internal Medicine 02/06/25 Abner Beck MD [address] [facility] [address] [place] [address] Consulting Physician Cardiology 03/04/18 Liana Salas MD [address] [facility] [address] [place], [place] [address] Referring Physician Rheumatology 02/03/19 documented as of this encounter"
--- NOTE | 2025-05-02 07:28 | ED.GENADULT ---
HPI - General Adult General Chief complaint: Chest Pain Stated complaint: CHEST PAIN; CARDIAC HISTORY Time Seen by Provider: 05/02/25 07:01 History of Present Illness HPI narrative: Is a 16-year-old male with history of coronary artery disease and AFib Eliquis presenting for chest tightness. Patient says he was woken from sleep at 4:00 a.m. tightness across his chest. It is nonradiating, moderate intensity and improving. Associated with some shortness of breath. When he woke he did have a productive cough with phlegm. He says this chest tightness feels similar to when he had AFib several months ago. No exacerbating alleviating factors. Not related to exertion diaphoresis and vomiting. Patient denies fevers or sick contacts at home. Related Data Home Medications ?Medication ?Instructions ?Recorded ?Confirmed ?Last Taken ?Type amlodipine 10 mg tablet 10 mg PO DAILY@39901/11/25 01/11/25 01/10/25 04:03 History 10 mg apixaban 5 mg tablet (Eliquis) 5 mg PO BID 01/11/25 01/11/25 01/10/25 16:00 History 5 mg atorvastatin 40 mg tablet 40 mg PO .daily 159901/11/25 01/11/25 01/10/25 16:00 History 40 mg bupropion HCl 150 mg 24 hr tablet, 450 mg PO .daily 39901/11/25 01/11/25 01/10/25 04:00 History extended release 450 mg clonidine HCl 0.3 mg tablet 0.3 mg PO Q8H 01/11/25 01/11/25 01/10/25 20:00 History 0.3 mg hydralazine 100 mg tablet 100 mg PO .daily 39901/11/25 01/11/25 01/10/25 04:00 History 100 mg hydralazine 25 mg tablet 75 mg PO Q8H 01/11/25 01/11/25 01/10/25 20:00 History 75 mg leflunomide 10 mg tablet 10 mg PO .daily 159901/11/25 01/11/25 01/10/25 16:00 History 10 mg metformin 500 mg tablet,extended 500 mg PO .daily 39901/11/25 01/11/25 01/10/25 04:00 History release 24 hr 500 mg metoprolol succinate 50 mg 50 mg PO Q12H 01/11/25 01/11/25 01/10/25 16:00 History tablet,extended release 24 hr 50 mg spironolactone 50 mg tablet 50 mg PO .daily noon 01/11/25 01/11/25 01/10/25 12:00 History 50 mg tirzepatide (weight loss) 5 mg/0.5 5 mg subcut WEEKLY 01/11/25 01/11/25 01/07/25 16:00 History mL subcutaneous pen injector 5 mg (Zepbound) Allergies Allergy/AdvReac Type Severity Reaction Status Date / Time lisinopril Allergy Intermediate angioedema Verified 05/02/25 06:09 [facility] Past Medical History Medical History (Updated 05/02/25 @ 10:48 by Darci Kraus MD) Coronary artery disease Atrial fibrillation Former smoker, stopped smoking many years ago Obese On statin therapy due to risk of future cardiovascular event HTN (hypertension) 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 Surgical History Surgical History History of coronary artery stent placement x2, Mazariegos; approx 2014 Social History Social History Smoking status: Former smoker Tobacco type: cigarettes Smoking end date: 01/12/20 Alcohol intake: current Drinks per week: 6 Substance use: current Substance use type: marijuana Do You Feel Safe in your Home?: Yes Lack of Transportation: No Lack of Food: Never True Current Housing: I Have Housing Concerned About Future Housing: No Difficulty Paying Gas/Electric Bills: No Difficulty Paying for Meds: No Currently Unemployed: No Education: Master's Degree or Higher Difficulty w/ Childcare or Family Care: No Spiritual care concerns: No Exam Narrative: APPEARANCE: No apparent distress. Head: atraumatic. EYES: EOMI, NOSE: Atraumatic NECK: Trachea midline RESPIRATORY: No increased rate of breathing , speaking full sentences very mild inspiratory wheeze CARDIOVASCULAR: RRR, no peripheral edema ABDOMINAL: Non-distended soft nontender MUSCULOSKELETAl: No obvious deformities NEURO: Alert. Moving 4/4 extremities SKIN:: Warm, dry. Normal color PSYCHIATRIC: Normal affect Course Vital Signs Vital signs: Vital Signs Temperature 98.2 F 05/02/25 05:59 Pulse Rate 89 05/02/25 05:59 Respiratory Rate 16 05/02/25 05:59 Blood Pressure 157/73 H 05/02/25 05:59 Pulse Oximetry 94 05/02/25 05:59 Oxygen Delivery Room Air 05/02/25 05:59 Temperature 98.2 F 05/02/25 05:59 Pulse Rate 82 05/02/25 09:34 Respiratory Rate 17 05/02/25 09:34 Blood Pressure 132/76 05/02/25 09:34 Pulse Oximetry 95 05/02/25 09:34 Oxygen Delivery Room Air 05/02/25 06:09 Medical Decision Making MDM Narrative Medical decision making narrative: -Course: 69-year-old male presenting with mild chest tightness and a productive cough. exam he has a very mild wheeze on inspiration. No history of asthma or COPD. Patient will be given a breathing treatment. Viral swabs chest x-ray and chest pain workup obtained. EKG showed right bundle-branch block without ischemic changes. Chest x-ray was clear. Troponins were undetectable x2. White count is 9.4 and he is afebrile. Viral swabs were negative. Patient was re-evaluated. Patient's wheezing resolved after the breathing treatment. He is still having some mild chest tightness but feels well overall. Patient's presentation is most consistent with bronchitis. Expected clinical course were discussed with the patient including the role or lack thereof of antibiotics. Patient is comfortable going home to follow-up with his primary care physician in 3-5 days to ensure his condition is improving. Given return precautions for worsening chest pain shortness of breath fevers or any new symptoms. -DDX includes but is not limited to: Bronchitis, viral syndrome, pneumonia, CHF, COPD, ACS -Co-morbidities complicating care: CAD, AFib, obstructive sleep apnea -Hx from independent Sources: @bedside Vital Signs Vital Signs: Vital Signs Temperature 98.2 F 05/02/25 05:59 Pulse Rate 89 05/02/25 05:59 Respiratory Rate 16 05/02/25 05:59 Blood Pressure 157/73 H 05/02/25 05:59 Pulse Oximetry 94 05/02/25 05:59 Oxygen Delivery Room Air 05/02/25 05:59 Temperature 98.2 F 05/02/25 05:59 Pulse Rate 82 05/02/25 09:34 Respiratory Rate 17 05/02/25 09:34 Blood Pressure 132/76 05/02/25 09:34 Pulse Oximetry 95 05/02/25 09:34 Oxygen Delivery Room Air 05/02/25 06:09 Lab Data 05/02/25 06:12 05/02/25 06:12 Labs: Lab Results 05/02/25 05/02/25 05/02/25 Range/Units 06:12 07:29 08:53 WBC 9.4 (4.5-10.0) K/mm3 RBC 4.58 L (4.6-6.20) M/mm3 Hgb 14.6 (14.0-18.0) g/dL Hct 43.6 (42.0-52.0) % MCV 95.2 (80-100) fl MCH 31.9 (26-34) pg MCHC 33.5 (32-36) g/dl RDW 12.7 (11.5-14.5) % Plt Count 172 (150-375) k/mm3 MPV 9.6 (7.4-10.4) fl Immature Gran % (Auto) 0.3 (0-0.5) % Neut % (Auto) 83.0 H (45.5-73.1) % Lymph % (Auto) 6.1 L (18.3-44.2) % Grand % (Auto) 8.4 (2.6-8.5) % Eos % (Auto) 1.6 (0-4.4) % Baso % (Auto) 0.6 (0.2-1.2) % Lymph # (Auto) 0.57 L (0.9-3.2) K/mm3 Grand # (Auto) 0.8 H (0.1-0.6) K/mm3 Eos # (Auto) 0.2 (0-0.3) K/mm3 Baso # (Auto) 0.1 (0.0-0.1) K/mm3 Abs Immat Gran (auto) 0.03 (0.00-0.031) K/mm3 Absolute Neuts (auto) 7.8 H (1.3-6.7) K/mm3 Absolute Nucleated RBC 0.000 (0.0-0.012) K/mm3 Nucleated RBC % 0.0 (0.0-0.2) % PT 15.0 H (11.1-14.7) Seconds INR 1.2 APTT 29.9 (22.3-36.8) Seconds Sodium 131 L (137-145) mmol/L Potassium 3.9 (3.4-5.0) mmol/L Chloride 100 (98-107) mmol/L Carbon Dioxide 24 (22-30) mmol/L Anion Gap 7 (4-12) mmol/L BUN 17 (9-20) mg/dL Creatinine 0.86 (0.7-1.3) mg/dL Estim Creat Clear Calc 94 ml/min Estimated GFR > 60 (59 - ) Glucose 116 H (65-110) mg/dL Calcium 9.1 (8.4-10.2) mg/dL Total Bilirubin 0.7 (0.2-1.3) mg/dL AST 42 (17-59) U/L ALT 34 (6-50) U/L Alkaline Phosphatase 78 (38-126) U/L Troponin I < 0.012 < 0.012 (0.000-0.034) ng/mL Total Protein 7.4 (6.3-8.2) g/dL Albumin 4.1 (3.5-5.1) g/dL Lipase 60 (23-300) U/L Influenza A (RT-PCR) Negative (Negative) Influenza B (RT-PCR) Negative (Negative) RSV (RT-PCR) Negative (Negative) SARS-CoV-2 RNA (RT-PCR) Negative (Negative) Discharge Plan Discharge Clinical Impression: Bronchitis Patient Disposition: Home Condition: Stable Instructions: Antibiotic Form, Acute Bronchitis (ED) Additional Instructions: Using emergency department for chest tightness and cough. You likely have bronchitis. Your symptoms should improve over the next 10 days. If you feel that you are getting worse, with fevers, worsening chest pain or shortness of breath I want you to return to the emergency department for re-evaluation. Please follow-up with your primary care physician in next 3-5 days. Patient Language: Swedish Prescriptions: No Action amlodipine 10 mg tablet 10 mg PO DAILY@0400 atorvastatin 40 mg tablet 40 mg PO .daily 1600 clonidine HCl 0.3 mg tablet 0.3 mg PO Q8H Patient Comments: Takes at 0400, 0000, 2000 hydralazine 25 mg tablet 75 mg PO Q8H Patient Comments: takes at noon and 8 pm hydralazine 100 mg tablet 100 mg PO .daily 0400 bupropion HCl 150 mg tablet extended release 24 hr 450 mg PO .daily 0400 leflunomide 10 mg tablet 10 mg PO .daily 1600 metformin 500 mg tablet extended release 24 hr 500 mg PO .daily 0400 metoprolol succinate 50 mg tablet extended release 24 hr 50 mg PO Q12H Patient Comments: takes 0400 and 1600 spironolactone 50 mg tablet 50 mg PO .daily noon Zepbound 5 mg/0.5 mL pen injector 5 mg SUBCUT WEEKLY Eliquis 5 mg tablet 5 mg PO BID Patient Comments: takes 0400 and 1600 diltiazem HCl 180 mg Capsule,Ext.Rel 24h Degradable 180 mg PO QAM Qty: 30 0RF Follow-up/Referrals: Boris Todd [Other]
[2025-05-02] MEDS: IPRATROPIUM 0.5 MG/ALBUTEROL SULFATE 2.5 MG (BASE) AMPUL.NEB 3 ML 6 ML INHALATION (07:47)
[2025-05-02 08:10] LABS: Influenza A QL RT-PCR Negative (Negative); Influenza B QL RT-PCR Negative (Negative); RSV RNA, RT-PCR Negative (Negative); SARS-CoV-2 RNA PCR Negative (Negative)
--- NOTE | 2025-05-02 08:56 | ECG_ITS ---
Test Date: 2025-05-02 09:01:59 Measurements Intervals [place] Rate: 81 P: 36 AL: 203 QRS: 59 QRSD: 162 T: 33 QT: 426 QTc: 496 Interpretive Statements SINUS RHYTHM BORDERLINE AV CONDUCTION DELAY RIGHT BUNDLE BRANCH BLOCK BASELINE WANDER- AVR, AVF ABNORMAL ECG Compared to ECG 05/02/2025 06:07:30 NO SIGNIFICANT CHANGE Electronically Signed On 05-02-2025 09:14:23 CDT by Adan Mcdermott D.O.
[2025-05-02 09:28] LABS: Troponin I < 0.012 ng/mL (0.000-0.034)
== END 2025-05-02 11:06 | disposition home or self-care (01) ==
PROVIDERS: Student in an Organized Health Care Education/Training Program; Emergency Provider Emergency Medicine
DX: J40 Bronchitis, not specified as acute or chronic (principal); Z20.822 Contact with and (suspected) exposure to COVID-19; I25.10 Atherosclerotic heart disease of native coronary artery without angina pectoris; I48.91 Unspecified atrial fibrillation; I10 Essential (primary) hypertension; G47.33 Obstructive sleep apnea (adult) (pediatric); Z95.5 Presence of coronary angioplasty implant and graft; Z87.891 Personal history of nicotine dependence; I45.10 Unspecified right bundle-branch block; R94.31 Abnormal electrocardiogram [ECG] [EKG]
CPT/HCPCS: 36415; 71045; 80053; 83690; 84484; 85025; 85610; 85730; 87637; 93005; 94640; 99284